=== PATIENT | female | born 1985 | race Caucasian/White ===

== ENCOUNTER 2021-01-07 10:07 | Emergency (ER) | payer OTHER, SELFPAY ==
--- NOTE | ~2021-01-07 | CT_ITS ---
EXAMINATION: CT BRAIN AND CT CERVICAL SPINE WITHOUT CONTRAST. CLINICAL INFORMATION: Headache and vomiting. Rule out intracranial hemorrhage. COMPARISON: None TECHNIQUE: 5 mm thin axial and reformatted 2 mm thin sagittal and coronal images of brain were obtained. Subsequently axial 3 mm thin and reformatted 2 mm thin sagittal and coronal images of cervical spine were obtained. DLP 1431 FINDINGS: BRAIN: There is no acute intra-axial, extra-axial bleed, masses or midline shift. There is no acute infarct in evolution. The lateral ventricles are symmetrical in size and configuration. There is no acute edema. Bone windows reveal no calvarial abnormality. The paranasal sinuses and mastoid air cells are well-aerated. CERVICAL SPINE: On sagittal reconstructed images there is mild straightening of cervical lordosis. The vertebral heights, alignment and disc heights are normal. The craniovertebral junction and the C1-C2 alignment is normal. There is no visible acute fracture, dislocation or subluxation seen. The prevertebral and paravertebral soft tissues are normal. The tracheal airway is widely patent. The lung apices are clear. CT/CT cervical spine wo con IMPRESSION: No acute intracranial process seen. Mild straightening of cervical lordosis. No visible acute fracture, dislocation or subluxation seen.
--- NOTE | ~2021-01-07 | CT_ITS ---
EXAMINATION: CT BRAIN AND CT CERVICAL SPINE WITHOUT CONTRAST. CLINICAL INFORMATION: Headache and vomiting. Rule out intracranial hemorrhage. COMPARISON: None TECHNIQUE: 5 mm thin axial and reformatted 2 mm thin sagittal and coronal images of brain were obtained. Subsequently axial 3 mm thin and reformatted 2 mm thin sagittal and coronal images of cervical spine were obtained. DLP 1431 FINDINGS: BRAIN: There is no acute intra-axial, extra-axial bleed, masses or midline shift. There is no acute infarct in evolution. The lateral ventricles are symmetrical in size and configuration. There is no acute edema. Bone windows reveal no calvarial abnormality. The paranasal sinuses and mastoid air cells are well-aerated. CERVICAL SPINE: On sagittal reconstructed images there is mild straightening of cervical lordosis. The vertebral heights, alignment and disc heights are normal. The craniovertebral junction and the C1-C2 alignment is normal. There is no visible acute fracture, dislocation or subluxation seen. The prevertebral and paravertebral soft tissues are normal. The tracheal airway is widely patent. The lung apices are clear. CT/CT head/brain wo con IMPRESSION: No acute intracranial process seen. Mild straightening of cervical lordosis. No visible acute fracture, dislocation or subluxation seen.
[2021-01-07 10:28] VITALS: BP 122/81; PULSE 71; RESP 16; TEMP 36.4; O2SAT 99; BMI 23.5
[2021-01-07] MEDS: 0.9 % Sodium Chloride 1,000 ML 999 ML IV ×2 (11:14→12:50)
--- NOTE | 2021-01-07 11:14 | ED.HA ---
HPI - Headache General Chief Complaint: Headache Stated Complaint: Migraine Time Seen by Provider: 01/07/21 10:55 Source: patient and family Mode of arrival: ambulatory Limitations: no limitations History of Present Illness HPI Narrative: 35-year-old female with a past medical history of psoriatic arthritis here with complaints of headache with nausea, vomiting and dizziness since last evening. No vision changes. Positive photophobia. No history of migraines.. Is complaining of some right-sided neck pain after lifting heavy object about 1 week ago. No swelling, weakness, numbness, tingling. Related Data Allergies Allergy/AdvReac Type Severity Reaction Status Date / Time No Known Allergies Allergy Verified 01/07/21 11:03 Review of Systems Review of Systems: Yes all other systems are reviewed and are negative Constitutional: Constitutional: Reports no additional constitutional complaints, Denies body ache(s), Denies chills, Denies fever(s), Reports headache(s) and Denies weakness Eyes: Eyes: Reports no additional eye complaints, Denies change in vision and Reports photophobia ENT: Reports system reviewed and no additional complaints, except as documented, Reports dizziness, Reports headache(s), Denies nasal congestion, Denies nasal discharge and Denies neck pain Comments: Photophobia Cardiovascular: Cardiovascular: Reports no additional cardiovascular complaints, Denies chest pain, Denies leg edema and Denies dyspnea Respiratory: Respiratory: Reports no additional respiratory complaints, Denies cough and Denies dyspnea Gastrointestinal: Gastrointestinal: Reports no additional gastrointestinal complaints, Denies abdominal pain, Denies diarrhea, Reports nausea and Reports vomiting Genitourinary: Genitourinary: Reports no additional female genitourinary complaints and Denies urinary incontinence Musculoskeletal: Musculoskeletal: Reports no additional musculoskeletal complaints, Denies back pain, Denies arthralgias, Denies joint swelling, Denies neck pain, Denies numbness and Denies tingling Integumentary/Breasts: Skin/Breast: Reports system reviewed and no additional complaints, except as docu and Denies rash Neurologic: Reports system reviewed and no additional complaints, except as documented, Denies Abnormal speech present, Reports dizziness, Reports headache(s), Denies numbness, Denies tingling and Denies weakness PMF Past Medical History Attestation statement: The following information was validated with the patient. Source: old records reviewed and nursing notes reviewed Medical History No known health problems Social History Social History Advance Directives: Yes Advance Directives Information Provided: No Advance Directives on File: No Patient : No Physical Exam Vital Signs: Vital Signs: Last Vital Signs Temp 97.5 F 01/07/21 10:28 Pulse 71 01/07/21 10:28 Resp 16 01/07/21 10:28 BP 122/81 01/07/21 10:28 Pulse Ox 99 01/07/21 10:28 Body Mass Index 23.5 Const: General: cooperative, healthy appearing, comfortable and no acute distress Orientation/consciousness: patient oriented x3 Limitations: no limitations HENMT: Head: Yes normal to inspection Ears: hearing grossly normal bilaterally General nose exam: Normal external nose present Face and sinus: Yes normal facial exam Mouth: Normal oral and palatal mucosa present Throat: Yes posterior oropharynx normal Eyes: General: appearance normal, both eyes and all related structures Pupils: Equal, round and reactive pupils present Direct Ophthalmoscopy: photophobia Neck: Other: Right lateral neck tenderness with no swelling, bruit, thrill. No midline tenderness or step-offs or deformities. Full range of motion Neck: Yes normal visual inspection Chest: Chest palpation & inspection: normal inspection of the chest Resp: Effort & Inspection: normal respiratory effort Auscultation: clear to auscultation bilaterally Cardio: Rate: regular rate Rhythm: regular rhythm Peripheral pulses: Peripheral pulses 2+ throughout GI: Inspection: Yes normal to inspection Palpation (GI): Soft to palpation and nontender Auscultation: normal bowel sounds Back/Spine/Pelvis: Thoracic/Lumbar Spine: thoracic and lumbar spine normal to inspection Skin: General skin exam: no rashes or lesions noted Neuro: General: patient oriented x3, no focal motor deficits and normal sensation to monofilament Cranial nerves: Yes CN's II-XII intact bilaterally, Yes Equal, round and reactive pupils present, Yes Bilaterally intact EOM present, Yes Nystagmus not present, Yes Normal facial strength present, Yes Midline tongue present and Yes Normal gag reflex present Cognition (Neuro): normal cognition Speech: No Abnormal speech present Gait exam (Neuro): Normal gait present Motor exam (neuro): 5/5 motor strength present throughout Sensory Exam: Normal double simultaneous stimulation for sensation Coordination: [id number] test normal and [id number] test normal Extrem: General: Yes normal to inspection Course Course Course Narrative: 35-year-old female here with generalized headache, nausea, vomiting, dizziness since last evening. Normal neuro exam. Will check CT head, give PIV/NSB/reglan and benadryl. 1430-CT head/neck negative. Pain is resolved and patient is feeling much improved and is tolerating PO. Likely migraine. Reviewed findings with patient and mom. Reviewed worrisome signs and symptoms and when to return to the emergency department. Comfortable discharge home. MDM - Headache Differential Diagnosis Differential diagnosis: Likely migraine and subarachnoid hemorrhage Medical Records Attestation: I reviewed the patient's medical records. Lab Data Attestation: I reviewed the patient's lab results. Result diagrams: 01/07/21 11:13 01/07/21 11:13 Labs: Lab Results 01/07/21 01/07/21 Range/Units 11:13 11:13 WBC 9.0 (4.8-10.8) X10*3/uL RBC 4.38 (4.20-5.50) X10*6/uL Hgb 14.0 (12.0-16.0) g/dl Hct 40.6 (37-47) % MCV 92.7 (80-98) fL MCH 32.0 (27.0-33.0) pg MCHC 34.5 (31.0-35.0) g/dl RDW 12.2 (11.0-16.0) % Plt Count 227 (160-400) X10*3/uL MPV 9.4 (9.4-12.3) fL Immature Gran % (Auto) 0.3 (0.0-0.4) % Neut % (Auto) 80.9 H (45-73) % Lymph % (Auto) 14.3 L (20-40) % [place] % (Auto) 2.3 (2-11) % Eos % (Auto) 2.0 (0-4) % Baso % (Auto) 0.2 (0-2) % Lymph # (Auto) 1.3 (1.2-4.9) X10*3/uL [place] # (Auto) 0.2 (0.1-1.2) X10*3/uL Eos # (Auto) 0.2 (0.0-0.4) X10*3/uL Baso # (Auto) 0.0 (0.0-0.2) X10*3/uL Abs Immat Gran (auto) 0.03 (0.00-0.03) X10*3/uL Absolute Neuts (auto) 7.3 (2.0-8.3) X10*3/uL Absolute Nucleated RBC 0.000 (0.0-0.012) X10*3/uL Nucleated RBC % (auto) 0.0 (0.0-0.2) /100WBC Sodium 140 (135-145) mmol/L Potassium 3.8 (3.3-5.1) mmol/L Chloride 106 (96-108) mmol/L Carbon Dioxide 24 (22-29) mmol/L Anion Gap 14 (12-20) BUN 11 (9-16) mg/dL Creatinine 0.81 (0.5-1.4) mg/dL Estim Creat Clear Calc 93.3 Estimated GFR > 60 Random Glucose 108 (60-115) mg/dL Calcium 9.8 (8.4-10.2) mg/dL Imaging Data Ct head/neck: Attestation: I personally reviewed and interpreted this imaging study as follows: Radiologist's impression: [address] Scan ReportSigned Patient: Darlyn Schulz#: [id number]: 1985Acct:[id number]/Sex: 35 / FADM Date: 01/07/21Loc: [email or web address] Dr: Ordering Physician: ADOLPH MCKEON NP Date of Service: 01/07/21 Procedure(s): CT cervical spine wo con Accession Number(s): [id number] cc: ADOLPH MCKEON NP~ EXAMINATION: CT BRAIN AND CT CERVICAL SPINE WITHOUT CONTRAST. CLINICAL INFORMATION: Headache and vomiting. Rule out intracranial hemorrhage. COMPARISON: None TECHNIQUE: 5 mm thin axial and reformatted 2 mm thin sagittal and coronal images of brain were obtained. Subsequently axial 3 mm thin and reformatted 2 mm thin sagittal and coronal images of cervical spine were obtained. DLP 1431 FINDINGS: BRAIN: There is no acute intra-axial, extra-axial bleed, masses or midline shift. There is no acute infarct in evolution. The lateral ventricles are symmetrical in size and configuration. There is no acute edema. Bone windows reveal no calvarial abnormality. The paranasal sinuses and mastoid air cells are well-aerated. CERVICAL SPINE: On sagittal reconstructed images there is mild straightening of cervical lordosis. The vertebral heights, alignment and disc heights are normal. The craniovertebral junction and the C1-C2 alignment is normal. There is no visible acute fracture, dislocation or subluxation seen. The prevertebral and paravertebral soft tissues are normal. The tracheal airway is widely patent. The lung apices are clear. CT/CT cervical spine wo con IMPRESSION: No acute intracranial process seen. Mild straightening of cervical lordosis. No visible acute fracture, dislocation or subluxation seen. Discharge Plan Discharge Clinical Impression: Migraine Qualifiers: Migraine type: unspecified Patient Disposition: Home, Self-Care Instructions: Migraine Headache (ED) Additional Instructions: Keep a headache diary Follow-up with your PCP for recurrent episodes Drink plenty of foods Referrals: Physician,Unknown [Primary Care Provider] - 2 days Interventions: ED Discharge Assessment Last Done: 01/07/21 15:10 Discharge Date/Time: 01/07/21 15:10
[2021-01-07 11:18] LABS: MANUAL DIFF FLAG NO
[2021-01-07 11:19] LABS: Basophils Percent Auto 0.2 % (0-2); Eosinophils Absolute Auto 0.2 X10*3/uL (0.0-0.4); Hematocrit 40.6 % (37-47); Imm Gran Abs Auto 0.03 X10*3/uL (0.00-0.03); Imm Gran Pct Auto 0.3 % (0.0-0.4); Lymphocytes Absolute Auto 1.3 X10*3/uL (1.2-4.9); Lymphocytes Percent Auto 14.3 % (20-40); Mean Corpuscular HGB Conc 34.5 g/dl (31.0-35.0); Mean Corpuscular Volume 92.7 fL (80-98); Mean Platelet Volume 9.4 fL (9.4-12.3); Monocytes Absolute Auto 0.2 X10*3/uL (0.1-1.2); Monocytes Percent Auto 2.3 % (2-11); Neutrophils Absolute Auto 7.3 X10*3/uL (2.0-8.3); Neutrophils Percent Auto 80.9 % (45-73); Platelet Count 227 X10*3/uL (160-400); Red Blood Count 4.38 X10*6/uL (4.20-5.50); Red Cell Distribution Width 12.2 % (11.0-16.0)
[2021-01-07] MEDS: diphenhydrAMINE HCL 50 MG/ML VIAL 25 MG IVPUSH (11:20)
[2021-01-07] MEDS: Metoclopramide HCl 10 MG/2 ML VIAL IVPUSH (11:20)
[2021-01-07 11:43] LABS: Anion Gap 14 (12-20); Blood Urea Nitrogen 11 mg/dL (9-16); Calcium 9.8 mg/dL (8.4-10.2); Carbon Dioxide 24 mmol/L (22-29); Chloride 106 mmol/L (96-108); Creatinine Clr Calc Pharmacy 93.3; Estimated Glomerular Filt Rate > 60; Glucose Random 108 mg/dL (60-115); Potassium 3.8 mmol/L (3.3-5.1); Sodium 140 mmol/L (135-145)
[2021-01-07] MEDS: Ketorolac Tromethamine 30 MG/ML VIAL IVPUSH (12:02)
== END 2021-01-07 15:10 | disposition home or self-care (01) ==
PROVIDERS: Nurse Practitioner Family; Emergency Provider Emergency Medicine
DX: G43.909 Migraine, unspecified, not intractable, without status migrainosus (principal); M54.2 Cervicalgia
CPT/HCPCS: 36415; 70450; 72125; 80048; 85025; 96361; 96374; 96375; 96376; 99283; 99284; J1200; J1885; J2765

== ENCOUNTER 2022-01-16 16:20 | Emergency (ER) | payer OTHER, SELFPAY ==
[2022-01-16 16:33] VITALS: BP 119/76; PULSE 104; RESP 20; TEMP 37.3; O2SAT 94; BMI 21.9
--- NOTE | 2022-01-16 17:15 | ED.ALLEREA ---
HPI - Allergic Reaction General Chief complaint: Allergic Reaction Stated complaint: Allergic reaction/SOB sent by pcp Time Seen by Provider: 01/16/22 17:01 Source: patient Mode of arrival: ambulatory Limitations: no limitations History of Present Illness HPI narrative: 36 yo female with history of psoriatic arthritis presents to the ER for evaluation of diffuse hives all over her body as well as wheezing that started 2 hours ago after she ate a banana. She states immediately after she had the banana she developed a stomachache and then diffuse hives all over her body. She felt like her throat was starting to swell up and she started wheezing. She took 50 mg of Benadryl. She reports when she was in [place] about 3 weeks ago she had a similar reaction to kiwi and almost . Prior to this event she had no known allergic reactions to food. She has seasonal allergies which are intermittent and mild. She reports some improvement in her throat swelling and wheezing since taking the Benadryl but her rash persists. MD complaint: allergic reaction and hives Onset (ago): hour(s) (2) Exposure: food Known history of allergy to: kiwi Symptoms: rash, itching, difficulty breathing and nausea Severity: severe Treatment prior to arrival: benadryl Related Data Previous Rx's Medication Instructions Recorded epinephrine 0.3 mg/0.3 mL 0.3 mg (0.3 mL) IM ONCE PRN #1 ea 01/16/22 injection, auto-injector (EpiPen) Allergies Allergy/AdvReac Type Severity Reaction Status Date / Time erythromycin base AdvReac Nausea and Verified 01/16/22 16:37 Vomiting Review of Systems Review of Systems: Constitutional: No Fever, No Chills ENT/Mouth: No sore throat, No Rhinorrhea, No Swallowing Difficulty Eyes: No Eye Pain, No Swelling, No Redness Cardiovascular: No Chest Pain, + SOB, No Orthopnea, No Edema Respiratory: No Cough, No Sputum, + Wheezing, No dyspnea Gastrointestinal: + Nausea, No Vomiting, No Diarrhea, + abdominal Pain Genitourinary: No Dysuria, No Urinary Frequency, No Hematuria Musculoskeletal: No joint pain, No Myalgias Skin: + Skin Lesions, + rash Neuro: No Weakness, No Numbness, No Dizziness, No Headache Psych: + Anxiety/Panic, No Depression Heme/Lymph: No Bruising, No Lymphadenopathy Endocrine: No Polyuria, No Polydipsia PMFSH Past Medical History Medical History No known health problems Social History Social History Advance Directives: No Advance Directives Information Provided: No Physical Exam ED Vital Signs: Vital Signs - 24 hr 01/16/22 16:33 01/16/22 17:57 Temperature 99.2 F 98.1 F Pulse Rate 104 H 79 Respiratory Rate 20 18 Blood Pressure 119/76 109/63 Pulse Oximetry 94 99 BMI result Body Mass Index 21.9 Appearance: Alert. Oriented X3. No acute distress. Eyes: Pupils equal, round and reactive to light. ENT: Pharynx normal. No lip swelling, tongue swelling. Normal voice, handling secretions normally. Airway is patent. Neck: Normal inspection. Neck supple. CVS: Normal heart rate and rhythm. Pulses normal. Respiratory: No respiratory distress. Breath sounds with expiratory wheezes throughout. Speaking complete sentences. Abdomen: Soft and nontender. +BS x4 Skin: Skin warm and dry. Skin with erythematous discoloration throughout most areas. Diffuse urticarial rash on all 4 extremities and the trunk. Extremities: No lower extremity edema. Neuro: Oriented X 3. No motor deficit. No sensory deficit. Steady gait. Course Course Course Narrative: 36-year-old female with a recent anaphylactic reaction to kiwi while in [facility] who presents to the ER with diffuse pruritic rash all over her body, sensation of throat closing, and wheezing that started 2 hours after she ate a banana. She took 50 mg of Benadryl about 2 hours prior to arrival and her throat swelling sensation is resolved. She denies any facial or lip swelling. No tongue swelling. Her voice is normal and she is handling secretions normally. On examination she has an audible wheeze throughout all lung thomas, she breathing normally with a normal oxygen saturation. Concern for anaphylaxis. Will give epinephrine, Solu-Medrol, Pepcid, Benadryl all IV and monitor very closely for airway decompensation. Reevaluation(s) Reevaluation #1: Patient has significantly improved after epi, steroids, Benadryl, Pepcid. Her lungs are completely clear and her rash has resolved. He has been monitored in the ER for 3 hours. At this time she is stable for discharge home. Will give her prescription for EpiPen, strictly advised to present to the emergency room it when and if she uses it. Patient expressed understanding. She is stable for discharge home. Critical Care Time Critical Care Time Critical Care Time: Yes Total Critical Care Time: 35 Attestation: I have personally provided critical care time exclusive of time spent on separately billable procedures. Time includes review the patient's data, frequent bedside reassessments, and monitoring for potential decompensation. Intervention performed as documented. Discharge Plan Discharge Clinical Impression: Anaphylaxis Patient Disposition: Home, Self-Care Instructions: Food Allergy (ED), General Allergic Reaction (ED) Additional Instructions: Recommend continuing Bendaryl 50 mg every 6 hours until your symptoms are completely resolved. If you develop similar symptoms again, use the prescribed EpiPen and come to the ER right away for evaluation. Prescriptions: New epinephrine [EpiPen] 0.3 mg/0.3 mL auto-injector 0.3 mg IM ONCE PRN (Reason: anaphylaxis) Qty: 1 0RF Interventions: ED Discharge Assessment Last Done: 01/16/22 19:11
[2022-01-16] MEDS: diphenhydrAMINE HCL 50 MG/ML VIAL 25 MG IVPUSH (17:18)
[2022-01-16] MEDS: 0.9 % Sodium Chloride 1,000 ML 999 ML IVCONT (17:18)
[2022-01-16] MEDS: Famotidine/PF 20 MG/2 ML VIAL IVPUSH (17:18)
[2022-01-16] MEDS: methylPREDNISolone Sod Succ 125 MG/2 ML VIAL IVPUSH (17:18)
[2022-01-16] MEDS: EPINEPHrine 1 MG/ML VIAL 0.3 MG IM (17:18)
[2022-01-16 17:57] VITALS: BP 109/63; PULSE 79; RESP 18; TEMP 36.7; O2SAT 99
== END 2022-01-16 19:13 | disposition home or self-care (01) ==
PROVIDERS: Emergency Provider Internal Medicine
DX: T78.04XA Anaphylactic reaction due to fruits and vegetables, initial encounter (principal)
CPT/HCPCS: 96361; 96372; 96374; 96375; 99284; J0171; J1200; J2930

== ENCOUNTER → 2023-01-12 09:01 | Outpatient (BNVA) | payer OTHER, SELFPAY | PROVIDERS: PCP Physician Assistant; Visit Provider Student in an Organized Health Care Education/Training Program ==

== ENCOUNTER 2023-01-12 09:43 | Outpatient (REF) | payer OTHER, SELFPAY ==
[2023-01-12 10:42] LABS: MANUAL DIFF FLAG NO
[2023-01-12 10:52] LABS: Basophils Percent Auto 0.5 % (0-2); Eosinophils Absolute Auto 0.7 X10*3/uL (0.0-0.4); Eosinophils Percent Auto 11.6 % (0-4); Hematocrit 38.5 % (37.0-47.0); Hemoglobin 12.9 g/dl (12.0-16.0); Imm Gran Abs Auto 0.01 X10*3/uL (0.00-0.03); Imm Gran Pct Auto 0.2 % (0.0-0.4); Lymphocytes Absolute Auto 1.8 X10*3/uL (1.2-4.9); Mean Corpuscular HGB Conc 33.5 g/dl (31.0-35.0); Mean Corpuscular Hemoglobin 31.2 pg (27.0-33.0); Mean Corpuscular Volume 93.2 fL (80.0-98.0); Mean Platelet Volume 9.7 fL (9.4-12.3); Monocytes Absolute Auto 0.3 X10*3/uL (0.1-1.2); Monocytes Percent Auto 5.3 % (2-11); Neutrophils Absolute Auto 3.2 x10*3/uL (2.0-8.3); Neutrophils Percent Auto 53.4 % (45-73); Platelet Count 265 X10*3/uL (160-400); Red Blood Count 4.13 X10*6/uL (4.20-5.50); Red Cell Distribution Width 12.7 % (11.0-16.0)
[2023-01-12 11:01] LABS: Alanine Aminotransferase 10 U/L (0-31); Albumin Level 3.9 g/dL (3.5-5.0); Alkaline Phosphatase 32 U/L (39-117); Anion Gap 8 (12-20); Aspartate Amino Transferase 12 U/L (5-31); Bilirubin Total 0.4 mg/dL (0.0-1.0); Blood Urea Nitrogen 12 mg/dL (9-16); C Reactive Protein < 0.10 mg/dL (< or = 0.50); Carbon Dioxide 26 mmol/L (22-29); Chloride 108 mmol/L (96-108); Estimated Glomerular Filt Rate > 60; Glucose Random 93 mg/dL (60-115); Potassium 4.3 mmol/L (3.3-5.1); Sodium 138 mmol/L (135-145); Total Protein 6.6 g/dL (6.5-8.0)
[2023-01-12 11:32] LABS: Erythrocyte Sedimentation Rate 7 MM/HR (0-20)
[2023-01-13 07:37] LABS: HBS Num1 23.77 mIU/mL (0-7.99); HBc Num1 0.07 S/CO (0.00-0.79); Hepatitis A Antibody IgM 0.16 Index (0-0.79); Hepatitis B Core Antibody Nonreactive (Nonreactive); Hepatitis B Surface Antigen Negative (Negative); ~HepC Num1 0.12 S/CO (0.00-0.79); ~Hepatitis A Antibody IgM Nonreactive (Nonreactive); ~Hepatitis B Surface Antibody REACTIVE (Nonreactive); ~Hepatitis C Antibody Nonreactive (Nonreactive)
[2023-01-14 17:10] LABS: TS Negative Control Passed; TS Panel A 0; TS Panel B 2; TS Positive Control Passed; TSpotTB Negative (Negative)
[2023-01-15 00:47] LABS: IgA 220 mg/dL (47-310); IgG 877 mg/dL (600-1640); IgM 182 mg/dL (50-300)
[2023-01-17 20:34] LABS: Prot Elec - Alpha1 0.3 g/dL (0.2-0.3); Prot Elec - Alpha2 0.7 g/dL (0.5-0.9); Prot Elec - Beta 1 0.4 g/dL (0.4-0.6); Prot Elec - Beta 2 0.3 g/dL (0.2-0.5); Prot Elec - Gamma 0.8 g/dL (0.8-1.7); Prot Elec - Total Protein 6.4 g/dL (6.1-8.1)
== END 2023-01-12 09:44 | disposition home or self-care (01) ==
LOC: HO.10HDL 09:43
PROVIDERS: Visit Provider Student in an Organized Health Care Education/Training Program
DX: Z11.7 Encounter for testing for latent tuberculosis infection (principal); Z11.59 Encounter for screening for other viral diseases; L40.50 Arthropathic psoriasis, unspecified; Z72.89 Other problems related to lifestyle
CPT/HCPCS: 36415; 80053; 82784; 84165; 85025; 85652; 86140; 86334; 86481; 86704; 86706; 86709; 86803; 87340

== ENCOUNTER 2023-08-12 09:42 | Outpatient (AMB) | payer OTHER, SELFPAY ==
--- NOTE | 2023-08-12 09:44 | A.OFFVIS_ITS ---
Intake Vital Signs 08/12/23 09:50 Height 5 ft 7 in Weight 125 lb 3.561 oz BMI 19.6 BP 94/62 Blood Pressure Location Rt brachial Position Sitting Pulse 74 Pulse Source Pulse Oximeter Temp 97 F Temp Source Skin Pulse Oximetry (%) 97 Oxygen Delivery Method Room Air Intake Visit Reasons: Flare up Intake Note: Patient presents today for flare up. Auger Operator Required: No Accompanied by: Self / Same As Patient Allergies kiwi Allergy (Severe, Verified 08/12/23 09:44) Hives, SOB banana Adverse Reaction (Severe, Verified 08/12/23 09:44) Hives, SOB erythromycin base Adverse Reaction (Verified 08/12/23 09:44) Nausea and Vomiting Medication List - Last Reconciled 08/12/23 by Quan Avelar MD alprazolam 0.5 - 1 mg PO DAILY PRN epinephrine (EpiPen) 0.3 mg (0.3 mL) IM ONCE PRN prednisone Take 3 tabs daily for 1 week then 2 tabs daily for 1 week then 1 tab daily for 1 week then stop HPI HPI Comments History of Present Illness Details 37-year-old female with psoriatic arthri tis returns for follow-up. She mentions that her sister was recently diagnosed with multiple sclerosis. Patient generally uses the Humira every 4 weeks. Her most recent injection was early June in her left thigh and she developed significant pain and swelling that lasted for 3 days. This was the 1st time she had such a reaction. Recently she has been having a flare-up of her psoriatic arthritis. It affects her left ring finger the IP and a few of her toes. With regards to her psoriasis, she almost always has a rash on her right forearm. She does use a topical cream, but she does not recall its name. Initial history: This is a 37-year-old female with psoriatic arthritis who presents as a new patient. Her previous grain manager left the practice. Patient states that she was diagnosed with psoriasis around age 20 then diagnosed with psoriatic arthritis around age 22. States that it used to affect her hands and feet. She was initially on NSAIDs and developed the peptic ulcer and was hospitalized. She was also on methotrexate which was ineffective. She was on Enbrel for about 12 years until 2019. She was using it about once a month. Enbrel lost its efficacy around 2019 and she was switched to Humira which patient uses every 1 or 2 months. She uses it when she feels she is getting a flare currently patient feels well with no swollen or tender joints. She has a small patch of psoriasis on her right elbow. Denies any significant back pain. There is no history suggestive of uveitis or IBD. States that there is suspicion of MS in her sister and she is now seeing a neurologist in [place]. Denies any history of DVT/PE [facility], [facility] Medical History Psoriasis Peptic ulcer GERD (gastroesophageal reflux disease) Mild persistent asthma Allergic rhinitis Generalized anxiety disorder Surgical History H/O foot surgery Family History Father Plaque psoriasis Liver cancer Alcoholism Skin disorder Maternal Grandmother Antiphospholipid syndrome, Onset Age: 60 Dementia Sister Multiple sclerosis, Onset Age: 40 Mother No problems noted. 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 [employer] Reports arthralgias, Reports joint swelling and Reports stiffness Skin/Breast Reports rash Physical Exam Vital Signs: Last Vital Signs Temp 97 F 08/12/23 09:50 Pulse 74 08/12/23 09:50 BP 94/62 08/12/23 09:50 Pulse Ox 97 08/12/23 09:50 Oxygen Delivery Method Room Air 08/12/23 09:50 BMI result Body Mass Index 19.6 Const General: cooperative, healthy appearing and comfortable Nutritional Appearance: thin Orientation/consciousness: patient oriented x3 Limitations: no limitations HEENT Head: Yes normocephalic and Yes atraumatic Mouth: moist mucous membranes Resp Effort & Inspection: normal respiratory effort and able to speak in complete sentences Auscultation: clear to auscultation bilaterally Cardio Rate: regular rate Rhythm: regular rhythm GI Inspection: No distended Palpation (GI): Soft to palpation and nontender Skin Other: Circular patch of psoriasis on the extensor surface of her right elbow Neuro General: patient oriented x3 Extrem Other: Multiple the IP deformities of both hands Synovitis affecting the left 4th finger DIP. Right 4th toe dactylitis Shortening of left 3rd toe Mild swelling of left 2nd toe Mild flexion deformities of her left toes Negative BEN test Negative straight leg raise test Assessment & Plan Assessment & Plan (1) Psoriasis with arthropathy: Comment: dx around 2007. (dactylitis and DIP disease) NSAIDs for about 6 months>>peptic ulcer Methotrexate ineffective Enbrel for 12 years until 2020 lost efficacy Humira since around 2019 effective. DC 06/2023 allergic reaction Code(s): L40.50 - Arthropathic psoriasis, unspecified Plan: This is a 37-year-old female with psoriatic arthritis who presents for follow- up. Patient has been using her Humira every 4 weeks for the last few years. Most recent injection back in early June, she had significant reaction with significant swelling of her thigh that eventually went away. Recently she found out that her sister was confirmed to have multiple sclerosis. Today patient is flaring with multiple swollen joints. Will need to switch DMARDs. Given that patient had a reaction to Humira and her sister was recently diagnosed with multiple sclerosis, I would like to avoid TNF inhibitors due to their association with demyelinating conditions such as multiple sclerosis. Discussed IL 17 inhibitors. Discussed risks and benefits of Taltz. Will start prior authorization for Taltz Will prescribe prednisone taper for current flare. Patient will call our office and let us know the name of her topical steroid cream Check x-rays of involved joints labs before next visit in 3 months Plan I spent 26 minutes reviewing patient's chart, evaluating patient, ordering diagnostic workup, counseling patient and documenting in the chart Orders: Orders XR hand wrist RT Today L40.50 - Arthropathic psoriasis, unspecified XR foot RT min 3V Today L40.50 - Arthropathic psoriasis, unspecified C Reactive Protein 3 Months L40.50 - Arthropathic psoriasis, unspecified XR hand wrist LT Today L40.50 - Arthropathic psoriasis, unspecified XR foot LT min 3V Today L40.50 - Arthropathic psoriasis, unspecified Complete Blood Count Auto Diff 3 Months L40.50 - Arthropathic psoriasis, unspecified Comprehensive Met. Panel 3 Months L40.50 - Arthropathic psoriasis, unspecified Erythrocyte Sedimentation Rate 3 Months L40.50 - Arthropathic psoriasis, unspecified Medications: New prednisone Take 3 tabs daily for 1 week then 2 tabs daily for 1 week then 1 tab daily for 1 week then stop 42 tabs 0RF Coding Level of Care Code Est Pt Level 4 (40034) Diagnoses Psoriasis with arthropathy L40.50
[2023-08-12 09:50] VITALS: BP 94/62; PULSE 74; TEMP 36.1; O2SAT 97; BMI 19.6
== END 2023-08-12 10:17 | disposition home or self-care (01) ==
PROVIDERS: PCP Physician Assistant; Visit Provider Student in an Organized Health Care Education/Training Program
DX: L40.50 Arthropathic psoriasis, unspecified (principal)
CPT/HCPCS: 99214

== ENCOUNTER 2023-08-12 09:42 | Outpatient (REF) | payer OTHER, SELFPAY | END 2023-08-12 09:43 | disposition home or self-care (01) | LOC: HO.XRAY 09:42 | PROVIDERS: PCP Physician Assistant; Visit Provider Student in an Organized Health Care Education/Training Program | DX: L40.50 Arthropathic psoriasis, unspecified (principal) | CPT/HCPCS: 73110; 73130; 73630 ==

== ENCOUNTER 2024-03-25 07:14 | Emergency (ER) | payer OTHER, SELFPAY ==
--- NOTE | ~2024-03-25 | CT_ITS ---
EXAMINATION: CT ABDOMEN AND PELVIS WITH CONTRAST CLINICAL INFORMATION: Severe epigastric pain COMPARISON: None available. TECHNIQUE: Multidetector volumetric images were obtained from the superior aspect of the liver through the pubic symphysis following administration 85 mL of Omnipaque 350 intravenous contrast. Sagittal and coronal reformatted images were obtained on the technologist's workstation. Oral contrast: No This CT examination was performed using dose optimization techniques as appropriate, variously including the following: *Automated exposure control *Adjustment of mA and/or kV according to patient size (this includes techniques or standardized protocols for targeted exams where dose is matched to indication/reason for exam; i.e. extremities or head) *Use of iterative reconstruction technique DLP: 350 mGy-cm FINDINGS: LUNG BASES: No pneumothorax. No large pleural effusion. LIVER, GALLBLADDER, AND BILIARY TREE: The liver is normal in size, shape, and attenuation. No focal hepatic lesion or biliary ductal dilatation is present. The gallbladder is unremarkable with no evidence of radiopaque gallstones, gallbladder wall thickening, or obvious pericholecystic inflammatory changes. PANCREAS: Unremarkable. SPLEEN: Unremarkable. 1.1 cm splenule ADRENAL GLANDS: Unremarkable. KIDNEYS AND URETERS: Subcentimeter bilateral renal hypodense foci too small to characterize though statistically representing cysts, not requiring follow-up. The kidneys are normal in size, shape, and attenuation. No hydronephrosis, hydroureter, or calculi seen. No perinephric stranding. BLADDER: Unremarkable. GASTROINTESTINAL TRACT: The small and large bowel are unremarkable. The appendix is unremarkable. ABDOMINAL WALL: No significant hernia is appreciated. LYMPH NODES: No enlarged lymph nodes per size criteria. VASCULAR: Aorta is nonaneurysmal. Retroaortic left renal vein. PELVIC VISCERA: Edematous anteverted uterus with fluid in the endometrium and pelvis, correlation with phase of menstruation. Bilateral adnexal/ovarian hypodense foci the largest measuring 1.7 cm. Findings are overwhelmingly likely to represent a normal ovarian follicle. No follow-up imaging recommended. OSSEOUS STRUCTURES: Degenerative changes of the thoracolumbar lumbosacral spine. Sclerotic focus right femoral head statistically representing bone island. CT/CT abdomen pelvis w IV con IMPRESSION: 1. No acute process of the abdomen or pelvis identified. 2. Subcentimeter bilateral renal hypodense foci too small to characterize though statistically representing cysts, not requiring follow-up. 3. Edematous anteverted uterus with fluid in the endometrium and pelvis, correlation with phase of menstruation.
[2024-03-25 07:21] VITALS: BP 117/72; PULSE 61; RESP 16; TEMP 36.4; O2SAT 99; BMI 20.3
[2024-03-25 07:38] VITALS: BP 113/76; PULSE 65; RESP 16; TEMP 36.4; O2SAT 99
--- NOTE | 2024-03-25 07:40 | ED_ITS ---
HPI - Nausea/Vomiting/Diarrhea General Chief complaint: Nausea/Vomiting/Diarrhea Stated complaint: vomitig/diarrhea Time Seen by Provider: 03/25/24 07:16 Source: patient Mode of arrival: ambulatory Limitations: no limitations History of Present Illness ED Provider: MAURY HPI Narrative: 38 yo female with PMH of psoriatic arthritis, bleeding ulcer back in her 20s managed by endoscopy does not take NSAIDs now here with c/o severe epigastric pain wrapping around back with n/v/d all night. Ate tacos but family ate same tacos and no one else is sick. The patient states this is the worst pain of her life. No fevers MD elicited complaint: nausea, vomiting, diarrhea and abdominal pain Onset (ago): hour(s) (several) Description of vomiting: food contents and watery Description of diarrhea: watery Location of pain: epigastric Radiation: left flank and right flank Pain consistency: constant Severity: severe Quality: stabbing Exacerbating factors: vomiting and movement Relieving factors: none Context: possible food poisoning Associated symptoms: loss of appetite, malaise and nausea/vomiting Related Data Home Medications ?Medication ?Instructions ?Recorded ?Confirmed alprazolam 0.5 mg tablet 0.5 - 1 mg PO DAILY PRN 01/04/23 Previous Rx's ?Medication ?Instructions ?Recorded epinephrine 0.3 mg/0.3 mL 0.3 mg (0.3 mL) IM ONCE PRN 01/16/22 injection, auto-injector (EpiPen) anaphylaxis #1 ea prednisone 5 mg tablet See Rx Instructions PO .COMPLEX 08/12/23 #42 tabs Taltz Autoinjector 80 mg/mL See Rx Instructions subcut 08/17/23 subcutaneous (ixekizumab) .COMPLEX #4 mL betamethasone dipropionate 0.05 % 1 appl topical BID #45 grams 08/17/23 topical cream famotidine 20 mg tablet (Pepcid) 40 mg (2 x 20 mg) PO DAILY PRN 03/25/24 abdominal discomfort #60 tabs ondansetron 4 mg disintegrating 4 mg PO Q8H PRN nausea and 03/25/24 tablet vomiting #20 tabs Allergies Allergy/AdvReac Type Severity Reaction Status Date / Time kiwi Allergy Severe Hives, SOB Verified 03/25/24 07:23 banana AdvReac Severe Hives, SOB Verified 03/25/24 07:23 erythromycin base AdvReac Nausea and Verified 03/25/24 07:23 Vomiting Review of Systems 2 Review of Systems: Constitutional : No Weight loss, No Fever, No Chills ENT/Mouth : No sore throat, No Rhinorrhea Eyes: No Swelling, No Redness Cardiovascular : No Chest Pain, No SOB, NoEdema Respiratory : No Cough, No Sputum, No Wheezing Gastrointestinal : Positive Nausea, Positive Vomiting, positive Diarrhea, positive abdominal Pain, No Hematochezia, No Melena Genitourinary : No Dysuria, No Urinary Frequency, No Hematuria, No Urgency Musculoskeletal : No joint pain, No Myalgias, No Joint Swelling Skin : No Skin Lesions, No rash Neuro : No Weakness, No Numbness, No Dizziness, No Headache Psych : No Anxiety/Panic, No Depression All other systems reviewed and are negative. [facility] Past Medical History Attestation statement: The following information was validated with the patient. Source: old records reviewed Medical History Psoriasis Peptic ulcer GERD (gastroesophageal reflux disease) Mild persistent asthma Allergic rhinitis Generalized anxiety disorder Surgical History H/O foot surgery Family History Family History Father Plaque psoriasis Liver cancer Alcoholism Skin disorder Maternal Grandmother Antiphospholipid syndrome, Onset Age: 60 Dementia Sister Multiple sclerosis, Onset Age: 40 Mother No problems noted. 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 Oriented X3. No acute distress. Eyes: Pupils equal, round and reactive to light. ENT: Pharynx normal. Neck: Normal inspection. Neck supple. CVS: Normal heart rate and rhythm. Pulses normal. Respiratory: No respiratory distress. Breath sounds normal. Abdomen: Soft and moderate epigastric pain with ttp no rebound or guarding Skin: Skin warm and dry. pale skin color. Extremities: No lower extremity edema. Neuro: Oriented X 3. No motor deficit. No sensory deficit. Course Course Course Narrative: lipase down to 79 no acute findings on CT scan Medications Administered Discontinued Medications Generic Name Dose Route Start Last Admin Trade Name Freq PRN Reason Stop Dose Admin Diphenhydramine HCl 25 mg 03/25/24 07:25 03/25/24 08:03 Diphenhydramine Hcl 50 Mg/Ml Vial IVPUSH 03/25/24 07:26 25 mg ONCE ONE Administration Famotidine 20 mg 03/25/24 07:25 03/25/24 08:10 Famotidine/Pf 20 Mg/2 Ml Vial IVPUSH 03/25/24 07:26 20 mg ONCE ONE Administration Lactated Ringer's 1,000 mls @ 999 mls/hr 03/25/24 07:26 03/25/24 09:20 Lr IV 03/25/24 08:26 Infused .Q1H1M ONE Infusion Lactated Ringer's 1,000 mls @ 999 mls/hr 03/25/24 07:37 03/25/24 10:25 Lr IV 03/25/24 08:37 Infused .Q1H1M ONE Infusion Iohexol 100 ml 03/25/24 08:46 03/25/24 08:47 Iohexol 350 Mg/Ml 100 Ml Infus..Btl IV 03/25/24 08:47 85 ml ONCE ONE Administration Metoclopramide HCl 10 mg 03/25/24 07:25 03/25/24 08:01 Metoclopramide Hcl 10 Mg/2 Ml Vial IVPUSH 03/25/24 07:26 10 mg ONCE ONE Administration Morphine Sulfate 4 mg 03/25/24 07:37 03/25/24 07:58 Morphine Sulfate 4 Mg/Ml Cartridge IVPUSH 03/25/24 07:38 4 mg ONCE ONE Administration Protocol Medical Decision Making Medical Decision Making [facility] Narrative: 38 yo female with PMH of psoriatic arthritis, PUD here with c/o severe epigastric pain n/v/d after eating tacos at this time labs, IVF x 2L, n/v medications, IV morphine for pain. Denies ETOH use, still has GB. Family ate same tacos no one else is ill. At this time possible gastritic, PUD, pancreatitis, biliary colic. CT scan ordered to look for intrabdominal pathology given the degree of her pain. Differential Diagnosis Differential Diagnoses: The differential diagnosis associated with the presentation includes gastritis, PUD, pancreatitis, biliary colic Admission/Observation Consideration of admission/observation: Escalation of care including admission/observation considered feels much better stable for DC tolerating PO Lab Data [facility] Lab Attestation statement: I reviewed the patient's lab results. 03/25/24 07:54 03/25/24 07:54 Labs: Lab Results 03/25/24 03/25/24 Range/Units 07:54 10:13 WBC 9.5 (4.8-10.8) X10*3/uL RBC 4.32 (4.20-5.50) X10*6/uL Hgb 13.8 (12.0-16.0) g/dl Hct 38.8 (37.0-47.0) % MCV 89.8 (80.0-98.0) fL MCH 31.9 (27.0-33.0) pg MCHC 35.6 H (31.0-35.0) g/dl RDW 12.3 (11.0-16.0) % Plt Count 217 (160-400) X10*3/uL MPV 9.3 L (9.4-12.3) fL Immature Gran % (Auto) 0.3 (0.0-0.4) % Neut % (Auto) 83.2 H (45-73) % Lymph % (Auto) 12.3 L (20-40) % [place] % (Auto) 2.8 (2-11) % Eos % (Auto) 1.2 (0-4) % Baso % (Auto) 0.2 (0-2) % Lymph # (Auto) 1.2 (1.2-4.9) X10*3/uL [place] # (Auto) 0.3 (0.1-1.2) X10*3/uL Eos # (Auto) 0.1 (0.0-0.4) X10*3/uL Baso # (Auto) 0.0 (0.0-0.2) X10*3/uL Abs Immat Gran (auto) 0.03 (0.00-0.03) X10*3/uL Absolute Neuts (auto) 7.9 (2.0-8.3) x10*3/uL Absolute Nucleated RBC 0.000 (0.0-0.012) X10*3/uL Nucleated RBC % (auto) 0.0 (0.0-0.2) /100WBC Sodium 140 (135-145) mmol/L Potassium 3.5 (3.3-5.1) mmol/L Chloride 106 (96-108) mmol/L Carbon Dioxide 25 (22-29) mmol/L Anion Gap 13 (12-20) BUN 13 (9-16) mg/dL Creatinine 0.85 (0.5-1.4) mg/dL Estim Creat Clear Calc 80.2 Estimated GFR > 60 Random Glucose 120 H (60-115) mg/dL Calcium 9.4 (8.4-10.2) mg/dL Magnesium 1.8 (1.6-2.6) mg/dL Total Bilirubin 0.5 (0.0-1.0) mg/dL Direct Bilirubin 0.1 (0.0-0.5) mg/dL AST 13 (5-31) U/L ALT 9 (0-31) U/L Alkaline Phosphatase 39 (39-117) U/L Total Protein 7.1 (6.5-8.0) g/dL Albumin 4.2 (3.5-5.0) g/dL Triglycerides 74 (<150) mg/dL Lipase 130 H 79 H (8-78) U/L Beta HCG, Quant < 2 mIU/mL Ethyl Alcohol < 10 mg/dL Independent Interpretation I performed an independent interpretation of an: CT Scan (no acute cause) Radiology Impression Discussion of test interpretation with radiology: I have reviewed the radiologist's reading. Independent Historian Clinical information obtained from an independent historian. History obtained from or confirmed by: Other (family) External Record Review External record reviewed: Inpatient record Prescription Management I considered prescription management with: Other Critical Care Time Critical Care Time Critical Care Time: Yes Total Critical Care Time: 45 Attestation: 2L of IVF, IV morphine with improvement in pain, repeat assessments I attest to this time spent taking care of the patient Discharge Plan Discharge Clinical Impression: Nausea vomiting and diarrhea Gastritis Qualifiers: Gastritis type: unspecified gastritis Chronicity: acute Gastritis bleeding: w ithout bleeding Qualified Code(s): K29.00 - Acute gastritis without bleeding Patient Disposition: Home, Self-Care Instructions: Gastritis (ED), Acute Nausea and Vomiting (ED), Acute Diarrhea (ED), Acute Abdominal Pain (ED) Additional Instructions: stay hydrated, lots of clear fluids today advance diet very slowly over next 48 hours return for any worsening symptoms such as fevers, worsening pain, bloody stools or any other concerns CT/CT abdomen pelvis w IV con IMPRESSION: 1. No acute process of the abdomen or pelvis identified. 2. Subcentimeter bilateral renal hypodense foci too small to characterize though statistically representing cysts, not requiring follow-up. 3. Edematous anteverted uterus with fluid in the endometrium and pelvis, correlation with phase of menstruation Prescriptions: New famotidine [Pepcid] 20 mg tablet 40 mg PO DAILY PRN (Reason: abdominal discomfort) Qty: 60 0RF ondansetron 4 mg tablet,disintegrating 4 mg PO Q8H PRN (Reason: nausea and vomiting) Qty: 20 0RF No Action betamethasone dipropionate 0.05 % cream 1 appl topical BID Qty: 45 1RF Taltz Autoinjector 80 mg/mL auto-injector See Rx Instructions subcut .COMPLEX Qty: 4 1RF Rx Instructions: 160 mg (2 pens) once, followed by 80 mg (1 pen) every 4 weeks epinephrine [EpiPen] 0.3 mg/0.3 mL auto-injector 0.3 mg IM ONCE PRN (Reason: anaphylaxis) Qty: 1 0RF alprazolam 0.5 mg tablet 0.5 - 1 mg PO DAILY PRN prednisone 5 mg tablet See Rx Instructions PO .COMPLEX Qty: 42 0RF Rx Instructions: Take 3 tabs daily for 1 week then 2 tabs daily for 1 week then 1 tab daily for 1 week then stop Stand Alone Forms: Work/School Release Print Language: Luxembourger
[2024-03-25 07:57] LABS: MANUAL DIFF FLAG NO
[2024-03-25 07:58] VITALS: RESP 16
[2024-03-25] MEDS: Morphine Sulfate 4 MG/ML CARTRIDGE IVPUSH (07:58)
[2024-03-25 08:01] LABS: Basophils Percent Auto 0.2 % (0-2); Eosinophils Absolute Auto 0.1 X10*3/uL (0.0-0.4); Eosinophils Percent Auto 1.2 % (0-4); Hematocrit 38.8 % (37.0-47.0); Hemoglobin 13.8 g/dl (12.0-16.0); Imm Gran Abs Auto 0.03 X10*3/uL (0.00-0.03); Imm Gran Pct Auto 0.3 % (0.0-0.4); Lymphocytes Absolute Auto 1.2 X10*3/uL (1.2-4.9); Lymphocytes Percent Auto 12.3 % (20-40); Mean Corpuscular HGB Conc 35.6 g/dl (31.0-35.0); Mean Corpuscular Hemoglobin 31.9 pg (27.0-33.0); Mean Corpuscular Volume 89.8 fL (80.0-98.0); Mean Platelet Volume 9.3 fL (9.4-12.3); Monocytes Absolute Auto 0.3 X10*3/uL (0.1-1.2); Monocytes Percent Auto 2.8 % (2-11); Neutrophils Absolute Auto 7.9 x10*3/uL (2.0-8.3); Neutrophils Percent Auto 83.2 % (45-73); Platelet Count 217 X10*3/uL (160-400); Red Blood Count 4.32 X10*6/uL (4.20-5.50); Red Cell Distribution Width 12.3 % (11.0-16.0); White Blood Count 9.5 X10*3/uL (4.8-10.8)
[2024-03-25] MEDS: Metoclopramide HCl 10 MG/2 ML VIAL IVPUSH (08:01)
[2024-03-25] MEDS: diphenhydrAMINE HCL 50 MG/ML VIAL 25 MG IVPUSH (08:03)
[2024-03-25] MEDS: Famotidine/PF 20 MG/2 ML VIAL IVPUSH (08:10)
[2024-03-25 08:19] LABS: Alanine Aminotransferase 9 U/L (0-31); Albumin Level 4.2 g/dL (3.5-5.0); Alkaline Phosphatase 39 U/L (39-117); Anion Gap 13 (12-20); Aspartate Amino Transferase 13 U/L (5-31); Bilirubin Direct 0.1 mg/dL (0.0-0.5); Bilirubin Total 0.5 mg/dL (0.0-1.0); Blood Urea Nitrogen 13 mg/dL (9-16); Calcium 9.4 mg/dL (8.4-10.2); Carbon Dioxide 25 mmol/L (22-29); Chloride 106 mmol/L (96-108); Creatinine Clr Calc Pharmacy 80.2; Estimated Glomerular Filt Rate > 60; Glucose Random 120 mg/dL (60-115); Lipase 130 U/L (8-78); Magnesium 1.8 mg/dL (1.6-2.6); Potassium 3.5 mmol/L (3.3-5.1); Sodium 140 mmol/L (135-145); Total Protein 7.1 g/dL (6.5-8.0)
[2024-03-25] MEDS: Lactated Ringers 1,000 ML 999 ML IV ×2 (08:22→09:21)
[2024-03-25 08:28] LABS: HCG Quantitative < 2 mIU/mL
[2024-03-25] MEDS: iohexoL 350 MG/ML 100 ML INFUS..BTL IV (08:47)
[2024-03-25 09:02] LABS: Ethanol < 10 mg/dL; Triglycerides 74 mg/dL (<150)
[2024-03-25 10:26] VITALS: BP 112/60; PULSE 68; RESP 14; TEMP 36.7; O2SAT 99
[2024-03-25 10:28] LABS: Lipase 79 U/L (8-78)
[2024-03-25 10:39] VITALS: BP 112/60; PULSE 68; RESP 14; TEMP 36.7; O2SAT 99
== END 2024-03-25 10:40 | disposition home or self-care (01) ==
PROVIDERS: Emergency Provider Emergency Medicine; PCP Physician Assistant
DX: K29.00 Acute gastritis without bleeding (principal); R11.2 Nausea with vomiting, unspecified; R19.7 Diarrhea, unspecified; R10.13 Epigastric pain; K21.9 Gastro-esophageal reflux disease without esophagitis; Z79.899 Other long term (current) drug therapy
CPT/HCPCS: 36415; 74177; 80048; 80076; 80307; 83690; 83735; 84478; 84702; 85025; 96361; 96374; 96375; 99284; J1200; J2270; J2765; J7120; Q9967

== ENCOUNTER 2025-02-15 09:42 | Outpatient (REF) | payer OTHER, SELFPAY ==
[2025-02-15 10:01] LABS: MANUAL DIFF FLAG NO
--- OUTSIDE RECORDS SUMMARY | 2025-02-15 10:14 | XMS_ITS | Data Portability ---
Author Organization [facility], , [facility] Address [address] [place] [address] Care Team Providers Care Machine Pack Assembler Name Role Phone JUAN FRANCISCO GONZALEZ Wax Bleacher DAV MARKS Primary Care Provider [phone] Assessment Encounter Date Assessment Date Assessment LastModified by Organization Details LastModified Time 07/30/2020 07/30/2020 phone visit: 15 min. [email or web address] Not available 07/30/2020 09:38:22 01/21/2022 01/21/2022 FU for PHA/Pap: pt to sched [email or web address] Not available 01/21/2022 11:30:25 Plan of Treatment Reminders Order Date Submit Date Provider Last Modified By Organization Details Last Modified Time Details Appointments None recorded. Lab pap, LB + HPV - Pap smear with HPV Is this patient taking hormones (y/n)? IF yes, what type? 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 Surgeries None recorded. Imaging XR, chest [address] (Imaging), [address], ROBERTO Gutierrez, [address], 4 09:59:34 Medication Orders prednisone 20 mg tablet 2023 024 [place] [address] ([facility]), [address] [place], [place], [id number], 4 11:41:42 albuterol sulfate HFA 90 mcg/actuat ion aerosol inhaler 2023 024 [place] [address] ([facility] [address]), [address] [place], [place], [id number], 4 11:41:41 albuterol sulfate 2.5 mg/3 mL (0.083 %) solution for nebulizati on 2023 024 [place] [address] ([facility] 82), [address] [place], [place], [id number], 4 12:30:11 alprazolam 0.5 mg tablet 2021 022 [place] [address] ([facility] 827), [address] [place], [place], [id number], 2 11:27:01 Humira(CF) Pen 40 mg/0.4 mL subcutaneo us kit 2019 020 [email or web address] [id number], [address] [place], [place], [id number], 4 15:15:03 betamethas one, augmented 0.05 % topical ointment 2019 020 INTERFACE [facility] [address] ([facility] 827), [address] [place], [place], [id number], 0 10:52:31 Patient TargetsNo targets recorded. Patient Instructions Encounter Date Encounter Id Patient Instructions Last Modified By Organization Details Last Modified Time 10/09/2019 [id number] Well Visit, Ages 18 to 65: Care Instructions [email or web address] Not available 10/09/2019 10:52:22 After a discussion of treatment options, which included consideration of best practices and patient preferences, the above treatment plan and objectives were adopted as above. [email or web address] Not available 10/09/2019 11:06:35 01/21/2022 [id number] food allergy: care instructions [email or web address] Not available 01/21/2022 11:12:34 anaphylactic reaction: care instructions [email or web address] Not available 01/21/2022 11:12:34 After a discussion of treatment options, which included consideration of best practices and patient preferences, the above treatment plan and objectives were adopted Spent 25 minutes of [id number] time, of which greater than 50% was in counseling. 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 Food anaphylaxis recent onset food anaphalaxis pt req stat referral required ED tx with epi-pen Referring Physician: Estelle Brown, [facility], Encounter Date: 01/21/2022 Wax Bleacher Referral for Psoriasis with arthropathy 36 yo F with psoriatic arthritis/ plaque psoriasis, stable on HumiraNeeds estab with new Wax Bleacher Referring Physician: Estelle Brown, [facility], Encounter Date: 08/31/2022 Results Created Date Observation Date Name Description Value Unit Range Abnormal Flag Note LastModifiedBy Organization Detail LastModifiedTime 10/09/19 20 10/09/2019 C-deepika ctive prote in, quant itati ve, serum or plasm a C-reactive protein -quant <2.0 mg/L 0.0-9. 0 < Not Available [address], [address], 10/09/2019 16:33:27 01/02/20 22 01/01/2022 COVID -19 PCR ORDER covid testing status Speci men recei saida in [facility]. Resul ralph islas d be avail able withi n 24 to 48 hrs. Not Available [facility] (Outpatient) [address] [place], [address], 01/01/2022 20:13:37 01/02/20 22 01/01/2022 COVID -19 PCR ORDER symptomatic? YES Not Available [facility] (Outpatient) [address] [place], [address], 01/01/2022 20:13:37 01/02/20 22 01/02/2022 COVID -19 RT-PC R specimen source AN SWAB Not Available [facility] (Outpatient) [address] [place] [address], [address], 01/02/2022 11:43:11 01/02/20 22 01/02/2022 COVID -19 RT-PC R sars-cov 2 (covid-19) PCR NEGATI VE negati ve (NOTE ) 2019- novel Coron aviru s (2018 -nCoV ) not detec sandra by the qRT-P CR assay . Consi surya testi ng for other respi rator y virus es or re-co llect ing for 2019- nCoV testi ng. Note: Optim um timin g for peak viral level s durin g infec tions cause d by 2019- nCoV have not been deter mined . Colle ction of multi ple speci mens from the same patie nt may be neces booker to detec t the virus . Metho ds and Limit ation s: This Labor atory Devel oped Test is a high- throu ghput versi on of the [facility] Realt thor RT-PC R test and has been valid ated in accor dance with the irish nce issue d by the Wendy wallis of [facility] (Nov 01) and the FDA (Oct 14, 2019) . This test has not been FDA clear ed or appro saida but is being run under the FDAs Emerg ency Use Autho rizat ion (EUA) mecha nism. This test was valid ated for dry nasal swabs . Metho d: RNA is isola sandra from respi rator y speci mens using Neon Mobile X-96 Viral RNA Monroe tion Kits (Ther mo Fishe r Scien tific ); RNA is rever se trans cribe d to cDNA, and subse quent ly ampli fied in a Real- Time PCR Instr ument (Appl ied Biosy stems ViiA7 ). This syste m provi cornelio quali tativ e detec tion of nucle ic acid from SARS- CoV-2 . For more detai led infor manuel johnson on the test metho ds and limit ation s as well as for Fact Sheet s for both Patie nts and Healt hcare provi ders see https ://br oad.i o/cov id19t est-f actsh eetv3 . Posit payal resul ts are indic ative of activ e infec tion with SARS- CoV-2 but do not rule out bacte rial infec tion or co-in fecti on with other virus es. The agent detec sandra may not be the defin ite cause of disea se. Negat payal resul ts do not precl ude SARS- CoV-2 infec tion and shoul d not be used as the sole basis for patie nt manag ement decis ions. False negat payal resul ts may occur if ampli ficat ion inhib itors are prese nt in the speci men or if inade quate numbe rs of organ isms are prese nt in the speci men due to impro per colle ction , trans maurice tion, or handl ing. If the virus mutat es in the RT-PC R targe t regio n, SARS- CoV-2 may not be detec sandra or may be detec sandra less predi ctabl y. Inhib itors or other types of inter feren ce may produ ce a false negat payal resul t. Not Available [facility] (Outpatient) [address], [place], [address], 01/02/2022 11:43:11 08/31/19 23 09/07/2022 PAP TEST path report [facility] [address] [place] [address] Lab Direc tor: Vidhi crowley MD [facility] Cytol ogy Repor t Acces rodriguez #: [id number] FINAL DIAGN OSIS A. PAP SMEAR (SURE PATH) CE: SPECI MEN ADEQU ACY: Satis facto ry for evalu ation ; trans forma tion zone prese nt. INTER PRETA TION: NEGAT PAYAL FOR INTRA EPITH ELIAL LESIO N OR VERN [place] . Elect yohana valerio Alida d Out By: Luzmaria Liu er, CT( CP) The Pap test is a scree irene test prima rily for squam ous cance rs and precu rsors and has assoc iated false -nega tive and false -posi tive resul ts. New techn ologi es such as liqui d-bas ed prepa ratio ns may decre ase but will not elimi genaro all false -nega tive resul ts. Regul ar sampl ing and follo w-up of unexp halley d clini isai signs and sympt oms are recom betty d to minim ize false negat payal resul ts. PROCE DURES /ADDE NDA HPV Testi ng (Requ ested ) Order ed Date: 2022 A. PAP SMEAR (SURE PATH) CE: Human Papil reanna Virus Test NEGAT PAYAL for high- risk Human Papil reanna Virus types 16, 18, 45 and the Othe r high risk probe set (Incl udes 31, 33, 35, 39, 51, 52, 56, 58, 59, 66, 68) Note: Testi ng perfo rmed by Yonny lane Oncla selma HR-HP V balbina sis. Clini isai corre latio n is advis ed. This HPV test was perfo rmed at [facility], [address] [facility] tts. This test has been FDA appro saida for SureP ath cervi isai cytol ogy speci mens. The accur acy and preci rodriguez of this test for all other speci men sourc es has been verif ied in the Cytop athol ogy Labor atory of the [facility] and has not been clear ed or appro saida by the U.S. Food and Drug Admin istra tion. Clini isai corre latio n is advis ed. Komal ctron icall y Alida d Out By: Dilcia Mccormack on 2022 20:01 CLINI ISAI HISTO RY Date of Last Menst rual Perio d: Not Provi ded Menst rual Histo ry: Unkno wn Other Clini isai Condi tions : Scree irene Pap SPECI MEN SOURC E A: PAP SMEAR (SURE PATH) CE Patie nt Name: KVNG SCHULZ : 985 (Age: 36) Sex: F 4 Insti tutio n: [facility] Locat ion: [facility] Date of Colle ction : 2022 Date of Acces rodriguez: 2022 Repor sandra: 2022 09:58 Resul ts to: Mary Carlson n-Vec mayra Not Available [facility] (Outpatient) [address] [place], [address], 09/07/2022 10:12:40 08/20/19 24 08/12/2023 XR, foot No observ ation record ed. [id number] [place], [address], 08/21/2023 22:41:23 08/20/19 24 08/12/2023 XR, foot No observ ation record ed. [address], [address], 08/21/2023 22:41:23 08/20/19 24 08/12/2023 XR, foot No observ ation record ed. [address], [address], 08/21/2023 22:41:24 08/20/19 24 08/12/2023 XR, foot No observ ation record ed. [address], [address], 08/21/2023 22:41:24 08/20/19 24 08/12/2023 XR, wrist + hand No observ ation record ed. [address], [address], 08/21/2023 22:41:25 08/20/19 24 08/12/2023 XR, wrist + hand No observ ation record ed. [address], [address], 08/21/2023 22:41:25 03/25/20 24 03/25/2024 CT, abdom en + pelvi s No observ ation record ed. [address], [address], 03/25/2024 16:16:39 Result Notes None recorded. Problems Name Problem SNOMED Code Status Onset Date Resolution Date Notes Provider Name and Address Organization Details Recorded Time Plaque psoriasi s 227481289 Active RENETTA Askew [address] [place] [address], [phone] , [facility] 4 08:18:56 Headache 91401248 Completed 10/09/2019 Estelle nunez PA-C [address] [place] [address], [phone] , [facility] 0 10:54:16 Knee pain Completed 10/09/2019 Estelle nunez PA-C [address] [place] [address], [phone] , [facility] 0 10:54:23 Knee joint effusion 865220629 Completed 10/09/2019 Estelle nunez PA-C [address] [place] [address], [phone] , [facility] 0 10:54:27 Flying phobia 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 Active 2018 Estelle nunez PA-C [address] [place] [address], [phone] , [facility] 9 12:47:40 Food anaphyla xis 30632845 Active 2021 Estelle nunez PA-C [address] [place] [address], [phone] , [facility] 2 11:12:08 Mild persiste nt asthma 632135653 Active 2021 Estelle nunez PA-C [address] [place] [address], [phone] , [facility] 2 11:29:52 Cough 46991985 Completed 200107/05/2013 Not Available [facility] 3 02:01:06 Gastroes ophageal reflux disease 867179386 Active 2005 rare symptoms Estelle nunez PA-C [address] [place] [address], [phone] , [facility] 0 10:54:15 Generali zed anxiety disorder 46835772 Active Not Available [facility] 3 03:08:01 Psoriasi s with arthropa thy Active Juan Francisco Gonzalez MD [address] [place] [address], [phone] , [facility] 6 07:05:08 Breathin g painful 46359092 Completed 200407/05/2013 Not Available [facility] 3 02:02:56 Finding by method 511568855 Completed 200207/05/2013 Not Available [facility] 3 02:01:54 Common cold 21621412 Completed 200007/05/2013 Not Available [facility] 3 02:00:25 Knee pain Completed 07/05/2013 Estelle nunez PA-C [address] [place] [address], [phone] , [facility] 0 10:54:24 Verruca vulgaris 50204850 Completed 200107/05/2013 Not Available [facility] 3 02:02:12 Sprain of shoulder and upper arm Completed 200307/05/2013 Not Available [facility] 3 02:03:37 Allergic rhinitis caused by pollen 06916453 Active 2001 Not Available [facility] 3 03:08:01 Acute maxillar y sinusiti s 08620486 Completed 200107/05/2013 Not Available [facility] 3 02:01:41 Acquired disorder of keratini zation 090593775 Completed 10/09/2019 Estelle nunez PA-C [address] [place] [address], [phone] , [facility] 0 10:53:47 Peptic ulcer 58155675 Active Juan Francisco Gonzalez MD [address] [place] [address], [phone] , [facility] 3 11:46:40 Streptoc occal sore throat 33304080 Completed 200307/05/2013 Not Available [facility] 3 02:02:01 Vaginiti s and vulvovag initis Completed 07/05/2013 Not Available [facility] 3 02:01:47 Problem Notes None recorded. Procedures Surgical History Date Name Laterality Status Provider Name and Address Organization Details Recorded Time 5 Shave Biopsy cancelled TOSHA Ha [facility] 10/06/2024 15:27:07 4 Nebulizer Tx completed Jeovanny Johnson RN [facility] 12/29/2023 11:42:52 0 prevention-suze [facility] alcohol misuse screening completed Jessa Cervantesam [facility] 10/09/2019 10:14:09 5 Generic Procedure Template completed Juan Francisco Gonzalez MD [address] [place] [address], [phone], [facility] 12/05/2014 18:38:30 2 Generic Procedure Template completed Juan Francisco Gonzalez MD [address] [place] [address], [phone], [facility] 06/01/2012 19:13:38 Imaging Results None recorded. Procedure Notes None recorded. Medical Equipment None Reported. Allergies Allergen ID Allergen Name Allergen Category Reaction Reaction Severity Criticality Documentation Date Start Date Code Code System Note Provider Name and Address Organization Details Recorded Time 19790 erythromy karan medicatio n nausea vomiting Not available Not available Not available 12/20/2008 4053 RxNorm Not Available Replaced by [facility] 1 06:05:20 117554 banana extract food,medi cation Not available Not available Not available 08/31/2022 11252 9 RxNorm Louise ROBERTO Haney [facility] 3 16:04:10 114417 kiwi fruit extract food Not available Not available Not available 08/31/2022 17361 01 RxNorm Louise Haney MA [facility] 3 16:04:10 Medications Name Sig Start Date Stop Date Status Note LastModified by Organization Details LastModified Time Prescript ion - Prior Authoriza tion Request 08/30 completed Not Available Not Available Not Available sulfasala zine 500 mg tablet 2 TABS TWICE A DAY 2011 active Not Available Not Available Not Avai lable albuterol sulfate 2.5 mg/3 mL (0.083 %) solution for nebulizat ion INHALE 3ML NOW VIA NEBULIZA TION 2023 active Not Available Not Available Not Avai lable trazodone 50 mg tablet Take 1-2 po q hs for sleep 02/09 completed Not Available Not Available Not Available meloxicam 15 mg tablet Take 1 tablet every day by oral route. 10/02 completed Not Available Not Available Not Available prednison e 20 mg tablet TAKE 2 TABLETS BY MOUTH EVERY DAY FOR 5 DAYS active Not Available Not Available No t Available Tubersol 5 tub. unit/0.1 mL intraderm al injection solution 2012 active PPD reading on 08/24/12 was neg Not Available Not Available Not Available prednison e 5 mg tablet 2 po qd for 1 wk, then 1 po qd for 2 weeks 12/28 completed Not Available Not Available Not Available sulfasala zine 500 mg tablet,de layed release 2 po bid 2010 active Not Available Not Available Not Avai lable clobetaso l 0.05 % topical cream APPLY A THIN LAYER TO THE AFFECTED AREA(S) BY TOPICAL ROUTE 2 TIMES PER DAY 11/11 completed Not Available Not Available Not Available amoxicill in 500 mg tablet Take 2 tablets twice a day by oral route for 7 days. 05/19 completed Not Available Not Available Not Available Zofran 4 mg tablet Take 1 tablet every 6-8 hours by oral route as needed. 02/09 completed Not Available Not Available Not Available alprazola m 0.5 mg tablet TAKE 1 TO 2 TABLETS BY MOUTH EVERY DAY NEEDED 2022 active behavioral psychologist checked last filled 07/31/22 #10 for 5 days Not Available Not Available Not Available famotidin e 20 mg tablet TAKE 2 TABLETS BY MOUTH DAILY NEEDED FOR ABDOMINA L DISCOMFO RT active Not Available Not Available No t Available lorazepam 0.5 mg tablet Take 1 tablet twice a day by oral route as needed. 2008 active Not Available Not Available Not Avai lable triamcino lone acetonide 0.025 % topical cream Apply a thin film to the affected skin areas by topical route 2 timesper day 2008 active Not Available Not Available Not Avai lable Zoloft 50 mg tablet Take 1 tablet every day by oral route. 02/09 completed Not Available Not Available Not Available methotrex ate sodium 2.5 mg tablet 9 tabs po weekly 2011 active Not Available Not Available Not Avai lable betametha sone dipropion ate 0.05 % topical cream APPLY TOPICALL Y TO THE AFFECTED AREA TWICE DAILY active Not Available Not Available No t Available betametha sone, augmented 0.05 % topical ointment KASH EXT AA Q DAY. DO NOT EXCEED 45 GM Q WK active Not Available Not Available No t Available omeprazol e 20 mg capsule,d elayed release Take 1 capsule every day by oral route. 2011 active Not Available Not Available Not Avai lable folic acid 1 mg tablet Take 1 tablet every day by oral route. 2011 active Not Available Not Available Not Avai lable hydroxyzi ne HCl 25 mg tablet Take 1 tablet 3 times a day by oral route as needed for 3 days. 07/30 completed Not Available Not Available Not Available epinephri ne 0.3 mg/0.3 mL injection , auto-inje ctor active Not Available Not Available Not Available albuterol sulfate HFA 90 mcg/actua tion aerosol inhaler INHALE 2 PUFFS IN TO THE LUNGS EVERY 4 HOURS NEEDED active Not Available Not Available No t Available ondansetr on 4 mg disintegr ating tablet DISSOLVE 1 TABLET ON THE TONGUE EVERY 8 HOURS NEEDED FOR NAUSEA OR VOMITING active Not Available Not Available No t Available piroxicam 20 mg capsule TAKE 1 CAPSULE BY MOUTH EVERY DAY 10/02 completed Not Available Not Available Not Available loratadin e 10 mg tablet 2007 active Take 1.00 tabs daily Not Available Not Available Not Available amoxicill in 875 mg-potass ium clavulana te 125 mg tablet TAKE 1 TABLET BY MOUTH TWICE A DAY FOR 7 DAYS 01/21 completed Not Available Not Available Not Available Enbrel 50 mg/mL (1 mL) subcutane ous syringe 08/30 completed Not Available Not Available Not Available Flovent HFA 110 mcg/actua tion aerosol inhaler Inhale 2 puffs twice a day by inhalati on route. 10/02 completed Not Available Not Available Not Available Enbrel SureClick 50 mg/mL (1 mL) subcutane ous pen injector INJECT ONE SURECLIC K PEN SUBCUTAN EOUSLY ONCE A WEEK. REFRIGER ATE. DO NOT FREEZE. 08/31 completed Not Available Not Available Not Available Taltz Autoinjec tor 80 mg/mL subcutane ous One injectio n once a month active Not Available Not Available No t Available Humira(CF ) 40 mg/0.4 mL subcutane ous syringe kit 08/31 completed Not Available Not Available Not Available Humira(CF ) Pen 40 mg/0.4 mL subcutane ous kit INJECT 1 PEN UNDER THE SKIN EVERY 14 DAYS. 08/12 completed *per rheum note 08/12/23 Not Available Not Available Not Available Vitals Date Recorded Body height Body mass index (BMI) Body weight Oxygen saturation Oxygen saturation in Arterial blood by Pulse oximetry Heart rate Systolic And Diastolic Provider Name and Address Organization Details Last Updated DateTime 3 167.13 cm 20.6 kg/m2 74649.2 3 g 99 % 99 % 73 /min 92/56 mm[Hg] Mary Kate pugh [facility] 3 16:13:42 Date Recorded Body height Heart rate Oxygen saturation Oxygen saturation in Arterial blood by Pulse oximetry Systolic And Diastolic Provider Name and Address Organization Details Last Updated DateTime 0 167.13 cm 64 /min 98 % 98 % 100/70 mm[Hg] Jessa James [facility] 0 10:21:40 Date Recorded Body weight Body temperature Heart rate Oxygen saturation Oxygen saturation in Arterial blood by Pulse oximetry Systolic And Diastolic Provider Name and Address Organization Details Last Updated DateTime 4 38151.6 4 g 97.3 [degF] 70 /min 96 % 96 % 96/62 mm[Hg] TOSHA Hermosillo [facility] 4 11:17:23 Date Recorded Body weight Oxygen saturation Oxygen saturation in Arterial blood by Pulse oximetry Heart rate Body mass index (BMI) Body height Systolic And Diastolic Provider Name and Address Organization Details Last Updated DateTime 2 44879.0 1 g 97 % 97 % 69 /min 21.1 kg/m2 167.13 cm 98/58 mm[Hg] Louise Haney MA [facility] 2 10:51:14 Date Recorded Body height Body mass index (BMI) Body weight Provider Name and Address Organization Details Last Updated DateTime 07/30/2020 167.13 cm 23.5 kg/m2 56946.89 g Mary Kate Cam LPN [facility] 07/30/2020 08:13:54 Social History Question Answer Notes LastModified by Organizat ion Details LastModified Time Tobacco Smoking Status Never Smoker Not Available [facility] 06/18/2020 03:17:54 Do You Wear A Helmet When Biking? No [id number] Information not available 06/18/2020 Are You Blind Or Do You Have Difficulty Seeing? No Information not available 08/31/2022 What Is Your Level Of Caffeine Consumption? Moderate [id number] Information not available 06/18/2020 How Much Tobacco Do You Chew? None [id number] Information not available 06/18/2020 What Type Of Diet Are You Following? REGULAR [id number] Information not available 06/18/2020 Which Illicit Or Recreational Drugs Have You Used? Marijuana Information not available 08/31/2022 Education 2 Year College Informatio n not available 08/31/2022 What Is The Highest Grade Or Level Of School You Have Completed Or The Highest Degree You Have Received? [id number] Information not available 08/31/2022 Are There Any Guns Present In Your Home? No [id number] Information not available 06/18/2020 Do You Use Insect Repellent Routinely? No Information not available 08/31/2022 Live Alone Or With Others? Alone Information not available 08/31/2022 Marital Status Single Informatio n not available 08/31/2022 Mosquito Repellent Used Routinely No Information not available 08/31/2022 What Was The Date Of Your Most Recent Tobacco Screening? 12/29/2023 [email or web address] Information not available 12/29/2023 How Many Children Do You Have? 0 Information not available 08/31/2022 What Is Your Relationship Status? Single Information not available 08/31/2022 Do You Use Your Seat Belt Or Car Seat Routinely? Yes Information not available 08/31/2022 Seat Belts Used Routinely Yes Information not available 08/31/2022 Are You Sexually Active? Yes [id number] Information not available 06/18/2020 Smoke Alarm In Home Yes Information not available 08/31/2022 Do You Have Smoke And Carbon Monoxide Detectors In Your Home? Yes Information not available 08/31/2022 Are You Passively Exposed To Smoke? No Information no t available 08/31/2022 What Types Of Sporting Activities Do You Participate In? Basketball Information not available 08/31/2022 General Stress Level Low Information not available 08/31/2022 Do You Use Sunscreen Routinely? No Information not available 08/31/2022 Sex: Unknown Functional Status Question Answer Note LastModified by Organizat ion Details LastModified Time Do you use any illicit or recreational drugs? Yes Information not available 08/31/2022 What is your level of alcohol consumption? Occasional Information not available 08/31/2022 Are you currently employed? 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 Moderate Information not available 08/31/2022 Mental Status Question Answer Note LastModified by Organization D etails LastModified Time Do you feel stressed (tense, restless, nervous, or anxious, or unable to sleep at night)? [id number] Information not available 08/31/2022 Family History Relationship Description Onset Age of this Age Resolved Age Notes LastModified by Organization Details LastModified Time Father Plaque psoriasis Not available 2022 16:04:05 Father Malignant neoplasm of liver 60 Hep C induce d liver Ca, alcoho lism Not available 08/31/2022 16:04:05 Father Disorder of skin Not available 2022 16:04:05 Maternal Grandmother Antiphosphol ipid syndrome 60 Not available 2022 16:04:05 Maternal Grandmother Dementia 86 [email or web address] o Not available 08/31/2022 16:43:01 Sister Multiple sclerosis 40 2022: presum ed, workup still sanjay smithaltonvecchi o Not available 08/31/2022 16:43:33 Notes:Mother: well Medical History Condition Response Peptic Ulcer Disease Y psoriasis Y RHEUMATOLOGIC Y Gynecological History Statement/Question Response Date of LMP 08/04/2022 Obstetrics History GPAL:G 0 P 0 0 0 0 Immunizations Vaccine Type Date Status Note Provider Nam e and Address Organization Details Recorded Time Tdap 02/20/2014 completed Not Available [facility] 09/02/2019 02:36:27 COVID-19, mRNA, LNP-S, PF, 100 mcg/0.5mL dose or 50 mcg/0.25mL dose 11/15/2021 completed Not Available [facility] 08/31/2022 15:55:41 COVID-19, mRNA, LNP-S, PF, 100 mcg/0.5mL dose or 50 mcg/0.25mL dose 11/16/2021 completed Not Available [facility] 08/31/2022 15:55:41 Past Encounters Encounter ID Performer Location Encounter Start Date Encounter Closed Date Diagnosis/Indication Diagnosis SNOMED-CT Code Diagnosis ICD10 Code Diagnosis Note [id number] Fredo Berry. , [facility], [address] [place] [address] 09/29/2000 14:30:00 09/05/2008 02:02:29 [id number] Reagan Zapata MD , [facility], [address] [place] [address] 05/12/2001 15:30:00 09/05/2008 02:02:29 [id number] Maxime Maurer MD , [facility], [address] [place] [address] 07/22/2001 15:30:00 09/05/2008 02:02:29 [id number] Prabhu Garrett MD , [facility], [address] [place] [address] 04/27/2002 10:43:53 09/05/2008 02:02:29 [id number] Shasha Brown NP , [facility], [address] [place] [address] 05/08/2002 11:12:07 09/05/2008 02:02:29 [id number] HUMA Dupree, [facility], [address] [place] [address] 06/12/2002 14:31:51 09/05/2008 02:02:29 [id number] HUMA Dupree, [facility], [address] [place] [address] 02/13/2003 14:54:33 09/05/2008 02:02:29 [id number] [facility] RADIOLOGY [employer] [facility] , [facility] [address] [place] [address] 02/13/2003 15:37:06 09/05/2008 02:02:29 [id number] MD MU Werner, [facility], [address] [place] [address] 10/26/2003 10:50:17 10/26/2003 15:09:27 [id number] HUMA Henderson, [facility], [address] [place] [address] 03/10/2004 13:54:13 04/25/2004 09:23:34 [id number] Fredo Berry, [facility], [address] [place] [address] 05/19/2005 14:21:40 09/05/2008 02:02:29 [id number] [facility] , [address] [address] 05/19/2005 14:52:12 09/05/2008 02:02:29 [id number] [facility] RADIOLOGY [employer] [address] [address] 05/19/2005 00:00:00 09/05/2008 02:02:29 [id number] MD MU Cabral, [facility], [address] [place] [address] 06/22/2006 15:02:07 06/23/2006 08:11:30 [id number] RENETTA Askew, [facility], [address] [place] [address] 08/19/2006 11:57:15 08/20/2006 14:10:06 [id number] Veena Patel NP FP, [facility], [address] [place] [address] 01/03/2008 14:36:57 09/05/2008 02:02:29 [id number] HUMA Guy, [facility], [address] [place] [address] 12/20/2008 11:34:32 12/25/2008 08:41:10 [id number] [facility] - [facility] [address] [place] [address] 12/20/2008 12:41:05 12/20/2008 12:41:13 [id number] [facility] - [facility] [address] [place] [address] 12/21/2008 13:59:49 12/21/2008 13:59:57 [id number] HUMA Dupree, [facility], [address] [place] [address] 10/17/2009 11:25:03 10/21/2009 08:57:46 [id number] [facility] PATHOLOGY COLLECTOR Radiology , [facility] [address] [place] [address] 10/22/2009 12:56:25 10/23/2009 13:34:12 [id number] Juan Francisco Gonzalez MD Rheumatol ogy, [address] [place] [address] 11/25/2009 13:40:49 11/29/2009 09:29:27 [id number] [facility] RADIOLOGY [facility] , [address] [place] [address] 11/25/2009 14:21:44 11/25/2009 14:34:57 [id number] Juan Francisco Gonzalez MD Rheumatol ogy, [address] [address] 01/06/2010 13:08:22 01/07/2010 09:05:52 [id number] HUMA Dupree, [facility], [address] [place] [address] 10/06/2010 14:30:33 10/09/2010 13:09:22 [id number] [facility] , [facility] [address] [place] [address] 10/06/2010 15:06:39 10/08/2010 13:21:47 [id number] Juan Francisco Gonzalez MD Rheumatol [facility], [address] [address] 03/05/2011 09:18:29 03/05/2011 12:22:53 [id number] Juan Francisco Gonzalez MD Rheumatol [facility], [address] [address] 10/02/2011 14:53:34 10/05/2011 09:39:18 [id number] Juan Francisco Gonzalez MD Rheumatol [facility], [address] [address] 11/12/2011 08:53:43 11/16/2011 08:30:38 [id number] Reagan Zapata MD , [facility], [address] [place] [address] 04/27/2012 09:44:51 04/27/2012 10:39:37 [id number] Juan Francisco Gonzalez MD Rheumatol [place], [address] [address] 06/01/2012 10:12:33 06/01/2012 11:15:26 [id number] Juan Francisco Gonzalez MD Rheumatol [place], [address] [address] 08/22/2012 10:41:45 08/23/2012 09:03:56 [id number] Juan Francisco Gonzalez MD Rheumatol [place], [address] [address] 10/20/2012 08:29:33 10/21/2012 08:51:06 [id number] Juan Francisco Gonzalez MD Rheumatol [place], [address] [address] 06/29/2013 08:30:11 06/30/2013 08:48:31 Psoriasis with arthropathy [id number] PsArth with excellent, essentiall y full response to Enbrel..To lerating well with no infection etc. No longer on MTX and she does not seem to need this. It sounds as if she might well be able to get by with injections every 10-14 days. Discussed. Discussed vaccinatio n: needs flu shot and suggested she get pneumovax. Does not want today, but promises to go to [facility] for flu shot soon. GET PNEUMOVAX AT NEXT PHYSICAL. Peptic ulcer [id number] pi roxicam induce GI bleed. No recurrence . . Plaque psoriasis [id number] Moderate psoriasis. Very little improvemen t on Enbrel. MTX, when she was taking it, did not help much. Discussed she could try changing to Humira, but does not want to make change at present. Has topicals. Use as needed. [id number] RENETTA Askew , [facility], [address] [place] [address] 02/20/2014 15:08:02 02/22/2014 13:19:43 Administration of diphtheria, pertussis, and tetanus vaccine [id number] Headache 46561552 cervic ogen ic DRISCOLL Refer to PT Psoriasis with arthropathy [id number] [id number] Juan Francisco Gonzalez MD Rheumatol [place] [address] 05/14/2014 10:19:12 05/14/2014 14:36:51 Psoriasis with arthropathy 40339499 Doing very well with Enbrel taken just every 4 weeks. No signs of synovitis. No tenderness . Continue current Enbrel. Need to check labs on Enbrel. Return 1 year or PRN. [id number] Reagan Zapata MD , [facility], [address] [place] [address] 11/05/2014 11:46:42 11/05/2014 12:36:28 Anxiety 41498130 Severe sx with panic episodes and inability to sleep. Will try low dose Zoloft as below to start. Xanax prn for the panic episodes. Has appt. with behavioral health therapist in 2-3 days. F/u here prn if not improving or sx worsening. F/U in 1 month to reevaluate sx. Pt comfortabl e with this plan. Over 50% of today's 35 min visit was spent on counseling , coordinati on of care and med mgt. [id number] Juan Francisco Gonzalez MD Rheumatol [address] [address] 12/05/2014 10:24:22 12/06/2014 09:51:31 Knee pain 77270684 Subacute onset of swelling right knee without trauma. Diagnostic aspiration performed. Fluid was very clear, pale yellow. No signs of inflammati on. The conclusion is that this was likely some internal derangemen t provoked in the knee effusion. It is not related to her psoriatic arthritis. There has been very considerab le spontaneou s improvemen t over the 48 hours. This may well resolve on its own. I have cautioned her to limit her activity for the next several days. If she has recurring swelling or persisting problems, the next step is to see orthopedic s. Knee joint effusion [id number] Psoriasis with arthropathy 02558676 Doing very well with Enbrel taken just every 4 weeks. No signs of synovitis. [id number] Juan Francisco Gonzalez MD Rheumatol [address] [address] 12/31/2015 10:40:42 01/02/2016 07:30:11 Psoriasis with arthropathy 92109593 L40.50 Doing very well with Enbrel taken just every 4 weeks. No signs of synovitis. Has tolerated med very well; no infectious illness. Continue. [id number] Shasha Brown NP , [facility], [address] [place] [address] 02/10/2016 11:16:47 02/11/2016 10:40:06 Acute sinusitis 79460642 J01.90 Enc force fluids, steam inhalation prn, take antibiotic as prescribed . Enc. probiotics /yogurt daily while on the amox and f/u if not gradually improving or sx worsening. [id number] Reagan Zapata MD , [facility], [address] [place] [address] 05/19/2016 10:36:58 05/21/2016 14:13:59 Epigastric pain 34373572 R10.13 this could be a perforated gastric ulcer. plan- spoke to ER md who will see the pt now. Probably needs iv therapy and iv omeprazole and maybe another endoscopy. [id number] Juan Francisco Gonzalez MD Rheumatol [place], [address] [address] 08/30/2017 08:01:19 08/31/2017 07:34:31 Psoriasis with arthropathy 26328854 L40.50 Long hx of psoriatic arthritis. Symptoms are controlled on infrequent doses of Enbrel. Generally waits about 4-5 weeks and re-doses when she feels sxs. She has developed significan t deformity at a couple of DIP joints. Now some sxs at thumb MCP.Discus sed that rather than wait until she feels sxs, she should dose herself regularly with the Enbrel every 3 weeks. Update labs on Enbrel today. Vitamin D deficiency 347 38003 E55.9 Takes no supplement . Check level. [id number] Chris Hammer MD , [facility], [address] [place] [address] 10/22/2017 09:04:47 10/22/2017 09:39:27 Psoriasis with arthropathy 98378690 L40.50 stable on Enbrel thru [place] illed clobetasol crm for placque on elbow Anxiety 68196060 F41.9 well managedact payal with BHrefilled xanax, uses seldom, maybe 10 tabs per yearDiscus sed the effects of benzodiaze pines, discussed the risks as well as benefits including the potential for abuse & addiction. [id number] Chris Hammer MD , [facility], [address] [place] [address] 12/08/2017 09:13:19 12/08/2017 10:10:10 Adult health examination 384203156 Z00.00 see Risk Assessment and Lifestyle Change Counseling section aboveEncou raged continuing her healthy lifestyle/ routine exercise & well rounded dietGets adequate Ca++ & VitDSees Dentist/Op tometrist routinelyP ap done todaySTD screen for reassuranc e, recent breakup Counseling 904751003 Z71 .9 Depression screening 171 459299 Z13.89 depression screening tool administer ed, entered into emr, scored and discussed, time greater than 7.5 minutesPHQ 9=2/7 Screening for malignant neoplasm of cervix 783728371 Z12.4 Venereal d isease screening 888757353 Z11.3 Plaque psoriasis 0466230 09 L40.0 stable, on Enbrel Extrinsic asthma with asthma attack 414723714 J45.901 stable, mild intermitte ntdeclines pnemovax [id number] Prabhu Garrett MD , [facility], [address] [place] [address] 07/29/2018 11:28:17 08/01/2018 14:44:54 Temporomandibular joint disorder 83072373 M26.933 [id number] Juan Francisco Gonzalez MD [facility] [place] [facility] [address] [facility] [place] [address] 11/11/2018 10:58:28 11/11/2018 11:23:14 Psoriasis with arthropathy 40288735 L40.50 Long hx of psoriatic arthritis. Symptoms are controlled on infrequent doses of Enbrel. Generally waits about 4 weeks and re-doses when she feels sxs. She has developed significan t deformity at a couple of DIP joints. Now some sxs at thumb MCP.Discus sed again that rather than wait until she feels sxs, she should dose herself regularly with the Enbrel every 3 weeks. Update labs on Enbrel today. Return about 12 mo. Psoriasis 1912669 L40.9 rash worse with change from clobetasol (insurance won't cover). [id number] Chris Hammer MD , [facility], [address] [place] [address] 05/23/2019 12:22:35 05/23/2019 12:47:41 Flying phobia 033865747 F40.243 flying to [facility] cussed the effects of benzodiaze pines, discussed the risks as well as benefits including the potential for abuse & addiction. Advised to use sparingly. Last rx > 90 d ago, 10 tabs Viral gastroenteritis 11 5759990 A08.4 sxs completely resolvedde clines flu vaccine. [id number] Estelle nunez PA-C , [facility], [address] [place] [address] 10/09/2019 10:10:35 10/09/2019 17:54:39 Adult health examination 937799244 Z00.00 see Risk Assessment and Lifestyle Change Counseling section aboveEncou raged continuing her healthy lifestyle/ routine exercise & well rounded dietGets adequate Ca++ & VitDSees Dentist/Op tometrist routinelyP ap NIL and HPV neg 2017; repeat 2010-2012N o contracept ion required Counseling 743947415 Z71 .9 Depression screening 171 333857 Z13.89 depression screening tool administer ed, entered into emr, scored and discussed, time greater than 7.5 minutes0/ 7 Screening for alcohol abuse 536421536 Z13.39 Psoriasis with arthropathy 68547758 L40.50 Long hx of psoriatic arthritis. Symptoms are controlled on infrequent doses of Enbrel. Generally waits about 4 weeks and re-doses when she feels sxs.Discus sed again that rather than wait until she feels sxs, she should dose herself regularly with the Enbrel every 3 weeks. Update labs on Enbrel today. Uses MJ for joint pain Needs 12 mo. fu Psoriasis 7409218 L40.9 rash worse with change from clobetasol (insurance won't cover). Flying phobia 355997302 F40.243 flying to [place] frequently . Discussed the effects of benzodiaze pines, discussed the risks as well as benefits including the potential for abuse & addiction. Advised to use sparingly. Last rx > 90 d ago, 10 tabs [id number] Juan Francisco Gonzalez MD [facility], [address] [address] 07/30/2020 08:09:47 07/30/2020 19:32:23 Psoriasis with arthropathy 76898849 L40.50 Long hx of psoriatic arthritis. Symptoms were controlled on infrequent doses of Enbrel. Generally waited about 4 weeks and re-doses when she feels sxs. She has developed significan t deformity at a couple of DIP joints. Now some sxs at thumb MCP. and for past few mo, L hand and bilat foot sxs despite weekly Enbrel. Discussed. I think we need to change Biologic. I suggested switch to Humira. If that is ineffectiv e, next choice would be Cosentyx. Update labs. Return about 2 mo. Note to reviewers: Dx psoriatic Arthritis [place] [address]: ineffectiv e. Enbrel 2012 to present: Has lost effectiven ess. Psoriasis 2250123 L40.9 rash not bad, but worse with change from clobetasol (insurance won't cover). Long-term drug therapy 996288442 Z79.899 On Enbrel. Follow up labs. Switching to Humira. Reviewed side effects. Discussed Covid. [id number] Eva York DO FP, [facility], [address] [place] [address] 01/21/2022 10:27:34 02/09/2022 17:27:39 Vaccine declined by patient 0703115788 02 Z28.21 declined (PPSV23 01/21/22 am Food anaphylaxis 9650031 2 T78.00XD new onsetavoid s dairy and gluten normallyno w w. anaph after eating kiwi and bananahas epi pen/ benadryl on hand at all times Flying phobia 909037162 F40.243 Discussed the effects of benzodiaze pines, discussed the risks as well as benefits including the potential for abuse & addiction. Advised to use sparingly. Last rx > 90 d ago, 10 tabs Mild persi stent asthma 077793392 J45.30 typically well controlled Cannabis dependence 8500 5007 F12.20 uses for anxiety, but finds most helpful for pain / back pain for psoriatic arthritisD iscussed neg effects on lung health, worsening asthma sxs [id number] Darya Acuña MD , [facility], [address] [place] [address] 08/31/2022 16:04:12 09/01/2022 09:03:31 Adult health examination 109051975 Z00.00 see Risk Assessment and Lifestyle Change Counseling section aboveEncou raged continuing her healthy lifestyle/ routine exercise & well rounded dietGets adequate Ca++ & VitDSees Dentist routinelyP ap NIL and HPV neg 2018/ updated todayNo contracept ion requiredDe clines flu and covid boosters/d iscussed Counseling 702110727 Z71 .9 Depression screening 171 569404 Z13.31 depression screening tool administer ed, entered into emr, scored and discussed, time greater than 7.5 minutesNEG Screening for alcohol abuse 420576025 Z13.39 NEG Vaccination not done 751 8704393 9108 Z28.29 Patient declined the flu vaccine at this time. 08/31/22 Psoriasis with arthropathy 23300899 L40.50 Long hx of psoriatic arthritis. Symptoms are controlled on infrequent doses of Humira. Generally waits about 4 weeks and re-doses when she feels sxs.Referr ed to [facility] care w/ new rheumatolo gist Cannabis d ependence, continuous 915659219 F12.20 discussed. uses for PA pain. 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 Health Concerns Section Related Observation LastModified by Organization Detai ls LastModified Time None Recorded Concern Status LastModified by Organization Details LastModified Time None Recorded Advance Directives Directive None Recorded Payers Insurance Date Sequence Insurance Name Policy Number Policy Adair Covered Member ID Adair Member ID Guarantor Name 10/31/2024 1 [facility] TYPE III (HMO) [id number] Emily E Jazz [id number] Emilyaleksandra Schulz 11/11/2011 1 *SELF PAY* Sa jc Schulz 05/12/2001 1 [facility]: [place]BI [place] (O) [id number] Sarina Schulz [id number] Emily Schulz 10/20/2012 1 [facility] NET PLAN (MEDICAID HMO) [id number] Emily Subhash Jazz [id number] Emily E Jazz 09/26/2014 1 [facility]- PLAN TYPE 2 (MEDICAID HMO) [id number] Emily E Jazz [id number] Emily E Jazz 11/23/2007 1 [facility]: O BLUE VALUE PLUS (HMO) [id number] Arturo Schulz [id number] Emily Schluz 03/10/2004 1 [employer] (O) [id number] Arturo Schulz [id number] Emily Schulz 10/20/2012 1 [facility] DIRECT [facility] (O) [id number] Emily Schulz [id number] Emily Subhash Jazz 10/20/2012 1 [facility] CARE PLAN (HMO) [id number] Emily Cullen Jazz [id number] Emily Subhash Jazz 05/19/2005 1 *SELF PAY* Sa jc Cullen Jazz 06/28/2013 1 [facility] - PLAN TYPE 3 (MEDICAID HMO) [id number] Emily Subhash Jazz [id number] Emily Subhash Jazz 05/19/2016 1 [facility] - TOGETHER (MEDICAID HMO) Emily Subhash Jazz [id number] Emily Subhash Jazz Notes Date Note Type Note Provider Name and Address Organization Details Recorded Time 10/09/2019 text/html Risk Assessment and Lifestyle Change Counseling 18-50Reported bypatient.Coronary Artery Disease Risk Assesment:No Family history of coronary artery disease; No personal history of diabetes Breast Cancer Risk Assessment:No family history of breast cancer; No history of breast cancer or dcis Lung Cancer Risk Assessment:Never smoked Cognitive/Behavioral Risk Assessment:Personal history of mental illness(anxiety);Fami ly history of mental illness(anxiety) Safety Risk Assessment:No evidence of abuse/neglect Diet:Counseled about appropriate portion size; Counseled about eating a diet low in trans and saturated fats and high in fiber, fruits and vegetables; Counseled about appropriate calcium intake and good dietary sources of calcium.; Counseled about the importance of maintaining a positive calcium balance and taking 1000 iu Vitamin D daily.; Discussed the value of a Mediterranean diet, and eating more fruits and vegetables Exercise counseling:Discussed the importance of daily physical activity; Discussed the importance of weight bearing exercise Safety:Counseled about protecting skin from the sun and lowering the risk of skin cancer; Counseled about avoiding excessive and unsafe alcohol intake; Counseled about home safety including use of smoke detectors, CO detectors, keeping home water temperature less than 120; Counseled about use of seat belts Family Planning:lesbian 33 yo F for PHAUnder care of Dr Gonzalez for plaque psoriasis, is stable. Needs annual fu appt. 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 The nature of the non-secure technology was discussed and the patient agreed to proceed. Patient understands this is a scheduled visit and the usual procedures with regard to billing and confidentiality apply. Patient was notified that the provider location is home Patient location: home During the visit the patient s medical history and medical record were reviewed. Followup for psoriatic arthritis. Last seen over a year ago. She had been on solid doses of MTX without response. In October, she started Enbrel Arthritis symptoms responded dramatically within a week or two. Stopped MTX with no flare. For the past 3 or 4 years, she had been using Enbrel about once a month and this controlled sx's very well. Now, however, more persistent pain and swelling especially L index finger and feet. For past 2-3 mo has been taking the Enbrel weekly. It seems to last only 5 days. Psoriatic rash mostly confined to R elbow and some in the scalp. It was well controlled with clobetasol ointment, but insurance wont cover. Betamethasone cream not as effective. At a prior visit (12/05/14) had non-inflammatory knee effusion; resolved after injection. Has been healthy. No recent febrile illness. . Juan Francisco Gonzalez MD [address] [place], [id number], [facility] 07/30/2020 09:38:38 01/21/2022 text/html pt would like to discuss certain foods/allergies kiwi in December and banana 4 days ate both in in the AM , whole body got hives, couldn't breathe, stomach was hurting.Took benadryl for it and went to hospital/[place] ED and treated for anaphalaxis.they gave her an epipenOccurred when in [place] first timeThis is new.No prior hx of food allergies in childhood. Re : asthma okay if I take my allergy meds Has inhaler, seldom usesSmokes MJ daily: helps PA back pain and anxietyHoping to open a cannabis shop Estelle Brown PA-C [address] [place], [id number], [facility] 01/21/2022 11:30:53 08/31/2022 text/html Physical Exam/FemaleReported bypatient.PHAPatient is here for a Wellness Visit. She describes her health status as good. Patient's health is the same as last year.Risk Assessment and Lifestyle Change Counseling 18-50Reported bypatient.Coronary Artery Disease Risk Assesment:No Family history of coronary artery disease; No personal history of diabetes Breast Cancer Risk Assessment:No family history of breast cancer; No history of breast cancer or dcis Lung Cancer Risk Assessment:Never smoked Cognitive/Behavioral Risk Assessment:Personal history of mental illness(anxiety);Fami ly history of mental illness(anxiety. MGM: housebound) Safety Risk Assessment:No evidence of abuse/neglect; Have you ever been a victim of physical/emotional/se xual abuse?NO Diet:Counseled about appropriate portion size; Counseled about eating a diet low in trans and saturated fats and high in fiber, fruits and vegetables; Counseled about appropriate calcium intake and good dietary sources of calcium.; Counseled about the importance of maintaining a positive calcium balance and taking 1000 iu Vitamin D daily.; Discussed the value of a Mediterranean diet, and eating more fruits and vegetables Exercise counseling:Discussed the importance of daily physical activity; Discussed the importance of weight bearing exercise; walks, yoga Safety:Counseled about protecting skin from the sun and lowering the risk of skin cancer; Counseled about avoiding excessive and unsafe alcohol intake; Counseled about home safety including use of smoke detectors, CO detectors, keeping home water temperature less than 120; Counseled about use of seat belts Family Planning:lesbian 36 yo F for PHAPreviously under care of Dr Gonzalez for plaque psoriasis, is stable. 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 (stopped Enbrel 2020 d/t lack of efficacy). Taking Humira only 1x/moOverall sxs of PA are stable. -doesnt feel very hungry, lost 15 lbs in 4 yrs. minimal appetite since peptic ulcer 10 yrs ago.-no asthma sxs for years. hasnt needed inhaler for a longtime-smokes MJ daily; uses for arthritis pain Works as [employer]ated C[employer] Single since breakup with her partner (lesbian) in 2019; does not req control or want children; Menses regularLPS 2017 NIL/HPV neg Estelle Brown PA-C [address] [place], [id number], [facility] 08/31/2022 18:06:31 12/29/2023 text/html Wheeze x 5 days. Not sleeping. Head congestion. Negative covid 2 days ago.taking Zyrtec; not really helping all the way.notes [place], feels like her usual asthma exacerbation Shital Peres MD [address] [place], [phone], [facility] 12/29/2023 20:39:19 OBGyn Episode No OBEpisode recorded.
[2025-02-15 10:39] LABS: Hematocrit 38.0 % (37.0-47.0); Hemoglobin 13.2 g/dl (12.0-16.0); Imm Gran Abs Auto 0.01 X10*3/uL (0.00-0.03); Imm Gran Pct Auto 0.2 % (0.0-0.4); Lymphocytes Absolute Auto 1.8 X10*3/uL (1.2-4.9); Mean Corpuscular HGB Conc 34.7 g/dl (31.0-35.0); Mean Corpuscular Hemoglobin 31.4 pg (27.0-33.0); Mean Corpuscular Volume 90.5 fL (80.0-98.0); NRBC Abs Auto 0.000 X10*3/uL (0.0-0.012); NRBC Pct Auto 0.0 /100WBC (0.0-0.2); Platelet Count 234 X10*3/uL (160-400); Red Blood Count 4.20 X10*6/uL (4.20-5.50); White Blood Count 6.2 X10*3/uL (4.8-10.8)
[2025-02-15 10:51] LABS: Alanine Aminotransferase 13 U/L (0-31); Albumin Level 4.5 g/dL (3.5-5.0); Alkaline Phosphatase 39 U/L (39-117); Anion Gap 12 (12-20); Aspartate Amino Transferase 18 U/L (5-31); Blood Urea Nitrogen 11 mg/dL (9-16); Calcium 9.0 mg/dL (8.4-10.2); Carbon Dioxide 23 mmol/L (22-29); Chloride 106 mmol/L (96-108); Estimated Glomerular Filt Rate > 60; Potassium 4.2 mmol/L (3.3-5.1); Sodium 137 mmol/L (135-145); Total Protein 7.1 g/dL (6.5-8.0)
== END 2025-02-15 09:43 | disposition home or self-care (01) ==
LOC: HO.LAB 09:42
PROVIDERS: Student in an Organized Health Care Education/Training Program; PCP Physician Assistant; Visit Provider Nurse Practitioner Family
DX: L40.50 Arthropathic psoriasis, unspecified (principal)
CPT/HCPCS: 36415; 80053; 85025; 85652; 86140